=== PATIENT | female | born 1980 | race Caucasian/White ===

== ENCOUNTER 2020-04-21 08:19 | Outpatient (REF) | payer OTHER, SELFPAY ==
[2020-04-21 08:48] LABS: MANUAL DIFF FLAG NO
[2020-04-21 08:49] LABS: Basophils Percent Auto 0.4 % (0-2); Eosinophils Absolute Auto 0.1 X10*3/uL (0.0-0.4); Eosinophils Percent Auto 0.8 % (0-4); Hematocrit 38.7 % (37-47); Hemoglobin 11.7 g/dl (12.0-16.0); Imm Gran Abs Auto 0.06 X10*3/uL (0.00-0.03); Imm Gran Pct Auto 0.6 % (0.0-0.4); Lymphocytes Percent Auto 28.3 % (20-40); Mean Corpuscular HGB Conc 30.2 g/dl (31.0-35.0); Mean Corpuscular Hemoglobin 23.4 pg (27.0-33.0); Mean Corpuscular Volume 77.2 fL (80-98); Mean Platelet Volume 9.9 fL (9.4-12.3); Monocytes Absolute Auto 0.6 X10*3/uL (0.1-1.2); Monocytes Percent Auto 5.1 % (2-11); Neutrophils Percent Auto 64.8 % (45-73); Platelet Count 425 X10*3/uL (160-400); Red Blood Count 5.01 X10*6/uL (4.20-5.50); Red Cell Distribution Width 15.6 % (11.0-16.0); White Blood Count 10.7 X10*3/uL (4.8-10.8)
[2020-04-21 09:56] LABS: Alanine Aminotransferase 22 U/L (0-31); Alkaline Phosphatase 83 U/L (39-117); Anion Gap 10 (12-20); Aspartate Amino Transferase 15 U/L (5-31); Bilirubin Total 0.8 mg/dL (0.0-1.0); Blood Urea Nitrogen 11 mg/dL (9-16); C Reactive Protein 1.52 mg/dL (< or = 0.50); Calcium 8.7 mg/dL (8.4-10.2); Carbon Dioxide 28 mmol/L (22-29); Chloride 102 mmol/L (96-108); Cholesterol 187 mg/dL; Estimated Glomerular Filt Rate > 60; Gamma Glutamyl Transpeptidase 16 U/L (7-33); Glucose Random 126 mg/dL (60-115); HDL Cholesterol 34 mg/dL; LDL Cholesterol Calculated 131 mg/dl; Potassium 4.1 mmol/l (3.3-5.1); Sodium 136 mmol/L (135-145); Triglycerides 112 mg/dL
[2020-04-21 11:19] LABS: Reflex LDLD? No
== END 2020-04-21 08:20 | disposition home or self-care (01) ==
LOC: HO.LAB 08:19
PROVIDERS: PCP Internal Medicine; Visit Provider Internal Medicine Gastroenterology
DX: K76.0 Fatty (change of) liver, not elsewhere classified (principal)
CPT/HCPCS: 36415; 80053; 80061; 82977; 85025; 86140

== ENCOUNTER 2020-05-01 13:12 | Outpatient (REF) | payer OTHER, SELFPAY ==
[2020-05-01 13:32] LABS: COVID-19 Test Negative (Negative); IDNOW Serial# 55D5AD1C
== END 2020-05-01 13:13 | disposition home or self-care (01) ==
LOC: HO.EMPCOV 13:12
PROVIDERS: Visit Provider Internal Medicine
DX: Z20.828 Contact with and (suspected) exposure to other viral communicable diseases (principal)
CPT/HCPCS: 87635; C9803

== ENCOUNTER → 2020-05-02 08:17 | Outpatient (BNVA) | payer OTHER, SELFPAY | PROVIDERS: PCP Internal Medicine; Referring Provider Internal Medicine; Visit Provider Internal Medicine Gastroenterology | DX: Z76.89 Persons encountering health services in other specified circumstances (principal) ==

== ENCOUNTER → 2021-11-01 12:01 | Outpatient (BNVA) | payer OTHER, SELFPAY | PROVIDERS: Visit Provider Nurse Practitioner | DX: K76.0 Fatty (change of) liver, not elsewhere classified (principal); K59.04 Chronic idiopathic constipation | CPT/HCPCS: 99212 ==

== ENCOUNTER 2021-12-12 11:22 | Outpatient (REF) | payer OTHER, SELFPAY ==
--- NOTE | ~2021-12-12 | US_ITS ---
EXAMINATION: US COMPLETE ABDOMEN WITH LIVER ELASTOGRAPHY CLINICAL INFORMATION: Fatty liver. COMPARISON: Abdominal ultrasound dated 06/16/2017. TECHNIQUE: Real-time imaging of the abdominal viscera. Noninvasive ultrasound liver fibrosis assessment is performed using Evie ElastPQ point quantification shear wave elastography (2D-SWE) with a C5-2 MHz transducer. Multiple elastography samples are obtained. FINDINGS: PANCREAS: Normal. The visualized pancreatic head and body are normal in appearance. The remainder of the pancreas is obscured from visualization by the overlying bowel gas. ABDOMINAL AORTA: The proximal, middle, and distal aortic segments are normal in caliber. INFERIOR VENA CAVA: Visualized portions are normal. LIVER: The liver demonstrates normal size, contour and generally increased echogenicity. No focal lesion or intrahepatic biliary duct dilatation. The right lobe measures 17.6 cm in length. The left lobe measures 12.4 cm in length. Portal flow is towards the liver (hepatopetal). Shear wave liver elastography median stiffness is 1.46 m/s (reference: normal median stiffness is 1.3 m/s or less). IQR/median stiffness to assess sampling precision is 0.08 (reference: good quality data set is IQR/median stiffness of 0.15 or less). GALLBLADDER: There are multiple gallstones, without gallbladder nonmobile polyps, wall thickening or pericholecystic fluid. COMMON BILE DUCT: Normal in caliber measuring 0.3 cm in diameter. RIGHT KIDNEY: Normal. No hydronephrosis. No renal calculi or focal parenchymal lesions. The kidney measures 12.0 cm in maximum dimension. LEFT KIDNEY: Normal. No hydronephrosis. No renal calculi or focal parenchymal lesions. The kidney measures 12.1 cm in maximum dimension. SPLEEN: Normal. The spleen measures 10.5 cm in maximum dimension. FREE FLUID: None. US/US abdomen comp w elastography IMPRESSION: 1. There is generalized increase in hepatic echotexture, consistent with fatty infiltration or hepatocellular disease. Please correlate clinically. No focal hepatic mass or intrahepatic biliary dilatation is seen. 2. Liver elastography: In the absence of other known clinical signs, measurements rule out compensated advanced chronic liver disease. If there are known clinical signs, further testing may be needed for confirmation. REFERENCE: Society of Radiologists in Ultrasound Liver Stiffness Thresholds (2020): LIVER STIFFNESS THRESHOLDS: *Liver Stiffness equal or less than 1.3 m/s: High probability of being normal. *Liver Stiffness less than 1.7 m/s: In the absence of other known clinical signs, rules out compensated advanced chronic liver disease. *Liver Stiffness 1.7-2.1 m/s: Suggestive of compensated advanced chronic liver disease but need further test for confirmation. *Liver Stiffness over 2.1 m/s: Rules in compensated advanced chronic liver disease. *Liver Stiffness over 2.4 m/s: Suggestive of clinically significant portal hypertension. QUALITY OF DATA SET: *IQR/Median value equal or less than 0.15 implies a quality data set. *IQR/Median value over 0.15 implies a poor quality data set. SIGNIFICANT CHANGE FROM PRIOR EXAM: Significant change if liver stiffness measurement is 10% or greater from prior exam. OTHER CONSIDERATIONS: The stage of liver fibrosis may be overestimated in the setting of acute hepatitis, liver inflammation, elevated liver function tests, hepatic vascular congestion, obstructive cholestasis, non-fasting state, and infiltrative diseases such as amyloidosis and lymphoma. In some patients with NAFLD, the liver stiffness thresholds for compensated advanced chronic liver disease may be lower. In causes other than viral hepatitis and NAFLD, liver stiffness thresholds are not well established.
[2021-12-12 12:11] LABS: MANUAL DIFF FLAG NO
[2021-12-12 12:21] LABS: Basophils Percent Auto 0.3 % (0-2); Eosinophils Absolute Auto 0.2 X10*3/uL (0.0-0.4); Eosinophils Percent Auto 1.3 % (0-4); Hematocrit 36.1 % (37.0-47.0); Hemoglobin 10.8 g/dl (12.0-16.0); Imm Gran Abs Auto 0.04 X10*3/uL (0.00-0.03); Imm Gran Pct Auto 0.3 % (0.0-0.4); Lymphocytes Absolute Auto 3.4 X10*3/uL (1.2-4.9); Lymphocytes Percent Auto 29.7 % (20-40); Mean Corpuscular HGB Conc 29.9 g/dl (31.0-35.0); Mean Corpuscular Hemoglobin 22.5 pg (27.0-33.0); Mean Corpuscular Volume 75.2 fL (80.0-98.0); Mean Platelet Volume 9.6 fL (9.4-12.3); Monocytes Absolute Auto 0.6 X10*3/uL (0.1-1.2); Monocytes Percent Auto 4.7 % (2-11); Neutrophils Absolute Auto 7.4 x10*3/uL (2.0-8.3); Neutrophils Percent Auto 63.7 % (45-73); Platelet Count 375 X10*3/uL (160-400); Red Cell Distribution Width 15.8 % (11.0-16.0); White Blood Count 11.6 X10*3/uL (4.8-10.8)
[2021-12-12 13:15] LABS: Alanine Aminotransferase 20 U/L (0-31); Alkaline Phosphatase 72 U/L (39-117); Anion Gap 12 (12-20); Aspartate Amino Transferase 16 U/L (5-31); Bilirubin Total 0.5 mg/dL (0.0-1.0); Blood Urea Nitrogen 12 mg/dL (9-16); Carbon Dioxide 25 mmol/L (22-29); Chloride 106 mmol/L (96-108); Estimated Glomerular Filt Rate > 60; Glucose Random 96 mg/dL (60-115); Potassium 4.6 mmol/L (3.3-5.1); Sodium 138 mmol/L (135-145)
== END 2021-12-12 11:23 | disposition home or self-care (01) ==
LOC: HO.US 11:22
PROVIDERS: Visit Provider Nurse Practitioner
DX: K76.0 Fatty (change of) liver, not elsewhere classified (principal)
CPT/HCPCS: 36415; 76705; 76981; 80053; 82105; 85025

== ENCOUNTER → 2022-02-12 11:58 | Outpatient (BNVA) | payer OTHER, SELFPAY | PROVIDERS: Visit Provider Nurse Practitioner | DX: K76.0 Fatty (change of) liver, not elsewhere classified (principal); K59.04 Chronic idiopathic constipation; K80.20 Calculus of gallbladder without cholecystitis without obstruction; D64.9 Anemia, unspecified; D72.829 Elevated white blood cell count, unspecified | CPT/HCPCS: 99212 ==

== ENCOUNTER → 2022-08-13 12:06 | Outpatient (BNVA) | payer OTHER, SELFPAY | PROVIDERS: Visit Provider Nurse Practitioner | DX: K59.04 Chronic idiopathic constipation (principal); K76.0 Fatty (change of) liver, not elsewhere classified; K21.9 Gastro-esophageal reflux disease without esophagitis; K80.20 Calculus of gallbladder without cholecystitis without obstruction | CPT/HCPCS: 99212 ==

== ENCOUNTER 2022-08-29 08:53 | Outpatient (REF) | payer OTHER, SELFPAY ==
--- NOTE | ~2022-08-29 | US_ITS ---
EXAMINATION: US ABDOMEN LIMITED CLINICAL INFORMATION: Fatty liver. COMPARISON: Ultrasound abdomen complete 12/12/2021 and 06/16/2017. TECHNIQUE: Real-time imaging of the right upper quadrant abdominal viscera. FINDINGS: PANCREAS: Normal. LIVER: Liver echotexture is increased. The liver is slightly enlarged. The liver contour is normal. No focal hepatic lesion. There is no intrahepatic biliary duct dilatation seen. GALLBLADDER: The gallbladder is physiologically distended. Multiple mobile gallstones are present. No evidence of gallbladder wall thickening or pericholecystic fluid. COMMON BILE DUCT: Normal in caliber measuring 0.4 cm in diameter. RIGHT KIDNEY: Normal. No hydronephrosis. No renal calculi or focal parenchymal lesions. The kidney measures 11.5 cm in maximum dimension. FREE FLUID: None. US/US abdomen limited IMPRESSION: Slightly enlarged echogenic liver probably representing fatty infiltration. Gallstones.
[2022-08-29 10:25] LABS: Alanine Aminotransferase 28 U/L (0-31); Alkaline Phosphatase 80 U/L (39-117); Anion Gap 11 (12-20); Aspartate Amino Transferase 23 U/L (5-31); Bilirubin Total 0.9 mg/dL (0.0-1.0); Blood Urea Nitrogen 11 mg/dL (9-16); Calcium 9.2 mg/dL (8.4-10.2); Carbon Dioxide 27 mmol/L (22-29); Chloride 106 mmol/L (96-108); Estimated Glomerular Filt Rate > 60; Glucose Random 121 mg/dL (60-115); Potassium 4.5 mmol/L (3.3-5.1); Sodium 139 mmol/L (135-145)
[2022-08-29 10:41] LABS: TSH reflex Free T4 0.55 uIU/mL (0.32-4.0)
[2022-09-01 14:03] LABS: Alpha Fetoprotein 1.3 ng/mL
== END 2022-08-29 08:54 | disposition home or self-care (01) ==
LOC: HO.US 08:53
PROVIDERS: Visit Provider Nurse Practitioner
DX: K59.04 Chronic idiopathic constipation (principal); K76.0 Fatty (change of) liver, not elsewhere classified
CPT/HCPCS: 36415; 76705; 80053; 82105; 84443

== ENCOUNTER → 2022-09-24 10:54 | Outpatient (BNVA) | payer OTHER, SELFPAY | PROVIDERS: Visit Provider Nurse Practitioner | DX: K59.04 Chronic idiopathic constipation (principal); K80.20 Calculus of gallbladder without cholecystitis without obstruction; K76.0 Fatty (change of) liver, not elsewhere classified; K21.9 Gastro-esophageal reflux disease without esophagitis; R11.10 Vomiting, unspecified | CPT/HCPCS: 99212 ==

== ENCOUNTER 2023-04-30 11:51 | Outpatient (AMB) | payer OTHER, SELFPAY ==
--- NOTE | 2023-04-30 11:54 | A.OFFVIS_ITS ---
Intake Vital Signs 3 04/30/23 12:03 Height 5 ft 2 in Weight 192 lb BMI 35.1 BP 127/74 Blood Pressure Location Rt brachial Position Sitting Pulse 73 Intake Visit Reasons: 6 mnth follow up Intake Note: Laurence presents in office visit today in 6 months follow up of constipation. CC: Patient reports she already had prolapse surgery done on 02/05/23. She c/o constipation, blood from internal hemorrhoids, lower abdominal pain. Pt also c/o abdominal bloating and cramps. Sand Cutter Required: No Accompanied by: Self / Same As Patient Allergies oxycodone [OXYCODONE] Allergy (Unknown, Verified 04/30/23 11:59) NAUSEA & VOMITING, nausea HPI 6 mnth follow up 2 HPI0 Details Assessment & Plan (1) Vomiting: Code(s): R11.10 - Vomiting, unspecified Plan: [place] #.declines .. She is still having trouble with CIC, but taking 2 senna qhs gave her diarrhea and made her dizzy, She has not tried 1 senna and I suggest qod etc to her titration. Only slightly better for unknown reasons , still has unexpected projective vomiting about 6 times a week, w.o much warning. Sometimes will get hot and then vomit but not all the time. NO abd pain. Some days no vomiting sometimes many times a day. Will carefully increase reglan to 1 tab qacam, 1 qnoon and 2 qac supper and qhs. Need to monitor for SS. On cymbalta and Topamax 100mg for migraines. She continues on her imipramine at bedtime, pantoprazole, and has senna and simethicone for constipation and bloating. We review her ultrasound at her liver functions it appears that her fatty liver is stable. I did educational guidance counselor her that it is possible she is having trouble with gallstones and for now she should avoid all fatty foods and we do review alarm signs and symptoms that would necessitate an emergency cholecystectomy. In the past she has been asymptomatic from these. She saw her B[employer] MANAGER and she does indeed have uterine prolapse that is effecting her stooling. She will be seeing urology to consider hyst vs sling surgery etc. She also have urinary frequency. ROV 6 mos. (2) Gallstones: Code(s): K80.20 - Calculus of gallbladder without cholecystitis without obstruction (3) Chronic idiopathic constipation: Code(s): K59.04 - Chronic idiopathic constipation (4) Hepatic steatosis: Comment: Baseline Laboratory Tests 12/12/21 WBC 11.6 H Hgb 10.8 L Hct 36.1 L MCV 75.2 L MCH 22.5 L Estimated GFR > 60 Direct Bilirubin 0.2 Total Bilirubin 0.5 AST 16 ALT 20 Alkaline Phosphatase 72 Alpha Fetoprotein 2.0 ULTRASOUND OF THE ABDOMEN WITH ELASTOGRAPHY 12/17/21? (F0-F1) CURRENT LABORATORY RESULTS 08/29/22 Estimated GFR > 60 Total Bilirubin 0.9 AST 23 ALT 28 Alkaline Phosphatase 80 Alpha Fetoprotein 1.3 TSH 0.55 ULTRASOUND THE ABDOMEN 09/02/22. IMPRESSION: Slightly enlarged echogenic liver probably representing fatty infiltration. Gallstones. Code(s): K76.0 - Fatty (change of) liver, not elsewhere classified (5) GERD (gastroesophageal reflux diseas e): Code(s): K21.9 - Gastro-esophageal reflux disease without esophagitis Medications: Changed From docusate sodium PO To docusate sodium 100 mg PO DAILY 3 0 caps 6RF Refilled sennosides (senna) 17.2 mg (2 x 8.6 m g) PO BEDTIME 30 d ays 60 caps 6RF co nstipation K59.04 - Chronic i diopathic constipa tion Today's VISIT [place] # declines medical secretary She her bladder prolapse surgery February 05. It all went well, but since then she has been having rectal pain and bleeding. She has been using 2 senna and 2 Colace to cause diarrhea because this was less painful to pass, however having diarrhea all the time is not convenient and not nutritionally helpful, so she stop the senna and was just taking Colace. With this her stools were on the softer side but still it would hurt when she had the past her bowels. She presented to her OBGYN surgeon who did an internal in said she had hemorrhoids and told her to use [id number] Preparation-H. However, they did not educate her that you really need to use it for a long period like 2 weeks straight to overcome this she ring forces that continually irritate the hemorrhoids and to promote healing. She is having some blood in her stools as well. She is quite concerned that she has some sort of infection. The differential diagnosis is wide and of course could include internal problem from surgery, a stool infection or even a Lawanda infection from operative antibiotics. For now however I think I am going to have her use her Preparation-H suppositories at least twice a day or even 3 times a day for 2 weeks straight and will see if this helps alleviate the pain. If it does not then will consider if the stool studies show us any new information and if not we may even take a swab sample of the rectum to see what might be going on. All also treat her with a course of Flagyl just in case there is some sort of low level infection. She is also having some tenesmus and bowel irritability which I would expect after having prolapse surgery since the course of the bowels somewhat altered. She also had an episode res she had an E coli urine tract infection that seem to have resolved on its own. The she is agreeable to going for lab work for monitoring of her fatty liver. Will also get an ultrasound. She continues on her reglan to 1 tab qacam, 1 qnoon and 2 qac supper and qhs. To date there has been no adverse effects or drug interactions. Need to monitor for SS. On cymbalta and Topamax 100mg for migraines. She continues on her imipramine at bedtime, pantoprazole, and has senna and simethicone for constipation and bloating. Return office visit in 2 weeks [facility] Medical History Hx of iron deficiency anemia Chronic idiopathic constipation Hepatic steatosis Surgical History S/P tubal ligation S/P tonsillectomy S/P Social History Household Members: Spouse and Children Alcohol intake: never service: No Current occupational status: employed Current occupation: [employer] Review of Systems Const Denies fatigue, Denies fever(s), Denies night sweats, Denies poor appetite and Denies weight loss ENT Reports Normal hearing present, Denies dysphagia, Denies odynophagia, Denies throat swelling and Denies tongue swelling Card Reports no additional complaints Resp Reports no additional complaints GI Details: rectal pain Denies abdominal pain, Denies melena, Denies bloating, Reports hematochezia, Reports constipation, Denies GI cramping, Denies dysphagia, Denies excessive flatus, Denies early satiety, Reports heartburn, Reports diarrhea, Denies nausea, Denies odynophagia, Denies vomiting and Denies hematemesis Reports difficulty voiding Skin/Breast Denies pruritus, Denies lesions, Denies rash and Denies jaundice Neuro Reports Normal hearing present and Denies Abnormal speech present Endo Denies fatigue Aller/Immun Denies throat swelling and Denies tongue swelling Physical Exam Vital Signs: Last Vital Signs Pulse 73 04/30/23 12:03 BP 127/74 04/30/23 12:03 BMI result Body Mass Index 35.1 Const General: cooperative, no acute distress, well developed and well groomed Nutritional Appearance: well nourished and obese morbidly obese Orientation/consciousness: oriented to person, oriented to place and oriented to time Limitations: No language barrier HEENT Head: Yes normocephalic and Yes atraumatic Eyes General: appearance normal, both eyes and all related structures Pupils: Equal, round and reactive pupils present Neck Neck: Yes normal visual inspection and Yes no lymphadenopathy Thyroid: Thyroid normal Resp Effort & Inspection: normal respiratory effort and able to speak in complete sentences Auscultation: clear to auscultation bilaterally Cardio Rate: regular rate Rhythm: regular rhythm Heart sounds: Normal, physiologic split S2 sound present Peripheral pulses: radial pulses present and posterior tibial pulses present GI Inspection: No distended, Yes Abdominal panniculus present and Yes obesity Palpation (GI): Soft to palpation, nontender, no guarding, not rigid and No hepatosplenomegaly present Percussion: Yes normal to percussion Auscultation: normal bowel sounds Rectal Exam - Female: normal sphincter tone, Internal hemorrhoid(s) present, No fecal impaction, No Lesions present (GI), No Anal fissure(s) present, tenderness and other (small anal tag at 3 O'clock, generally painful internally in all aspects) Abdomen image: 2 1. well healing surgical lap scars 2. 3. 4. Skin General skin exam: no rashes or lesions noted, turgor normal, skin not dry, no jaundice, No spider nevi and no striae Rashes: no rashes Nails: normal Neuro General: oriented to person, oriented to place and oriented to time Cranial nerves: Yes Equal, round and reactive pupils present and Yes Normal hearing present Speech: No Abnormal speech present Extrem General: Yes normal to inspection, No clubbing, No cyanosis and No edema Psych Appearance: grossly normal and well kempt Mental Status: mental status grossly normal Speech and movement: Normal speech and movement present Affect: normal affect Attitude: cooperative Thought process: Normal thought process present and not confabulating Thought content: Normal thought content present Insight: Limited insight present (Psych) Judgement: Limited judgement present (Psych) Assessment & Plan Assessment & Plan (1) Chronic idiopathic constipation: Code(s): K59.04 - Chronic idiopathic constipation (2) GERD (gastroesophageal reflux disease): Code(s): K21.9 - Gastro-esophageal reflux disease without esophagitis (3) Vomiting: Code(s): R11.10 - Vomiting, unspecified (4) Hepatic steatosis: Comment: Baseline Laboratory Tests 12/12/21 WBC 11.6 H Hgb 10.8 L Hct 36.1 L MCV 75.2 L MCH 22.5 L Estimated GFR > 60 Direct Bilirubin 0.2 Total Bilirubin 0.5 AST 16 ALT 20 Alkaline Phosphatase 72 Alpha Fetoprotein 2.0 ULTRASOUND OF THE ABDOMEN WITH ELASTOGRAPHY 12/17/21? (F0-F1) CURRENT LABORATORY RESULTS 08/29/22 Estimated GFR > 60 Total Bilirubin 0.9 AST 23 ALT 28 Alkaline Phosphatase 80 Alpha Fetoprotein 1.3 TSH 0.55 ULTRASOUND THE ABDOMEN 09/02/22. IMPRESSION: Slightly enlarged echogenic liver probably representing fatty infiltration. Gallstones. Code(s): K76.0 - Fatty (change of) liver, not elsewhere classified (5) Gallstones: Code(s): K80.20 - Calculus of gallbladder without cholecystitis without obstruction (6) Diarrhea: Code(s): R19.7 - Diarrhea, unspecified (7) Rectal pain: Code(s): K62.89 - Other specified diseases of anus and rectum Plan [place] # declines medical secretary She her bladder prolapse surgery February 05. It all went well, but since then she has been having rectal pain and bleeding. She has been using 2 senna and 2 Colace to cause diarrhea because this was less painful to pass, however having diarrhea all the time is not convenient and not nutritionally helpful, so she stop the senna and was just taking Colace. With this her stools were on the softer side but still it would hurt when she had the past her bowels. She presented to her OBGYN surgeon who did an internal in said she had hemorrhoids and told her to use [id number] Preparation-H. However, they did not educate her that you really need to use it for a long period like 2 weeks straight to overcome this she ring forces that continually irritate the hemorrhoids and to promote healing. She is having some blood in her stools as well. She is quite concerned that she has some sort of infection. The differential diagnosis is wide and of course could include internal problem from surgery, a stool infection or even a Lawanda infection from operative antibiotics. For now however I think I am going to have her use her Preparation-H suppositories at least twice a day or even 3 times a day for 2 weeks straight and will see if this helps alleviate the pain. If it does not then will consider if the stool studies show us any new information and if not we may even take a swab sample of the rectum to see what might be going on. All also treat her with a course of Flagyl just in case there is some sort of low level infection. She is also having some tenesmus and bowel irritability which I would expect after having prolapse surgery since the course of the bowels somewhat altered. She also had an episode res she had an E coli urine tract infection that seem to have resolved on its own. The she is agreeable to going for lab work for monitoring of her fatty liver. Will also get an ultrasound. She continues on her reglan to 1 tab qacam, 1 qnoon and 2 qac supper and qhs. To date there has been no adverse effects or drug interactions. Need to monitor for SS. On cymbalta and Topamax 100mg for migraines. She continues on her imipramine at bedtime, pantoprazole, and has senna and simethicone for constipation and bloating. Return office visit in 2 weeks Orders: Orders 2 Alpha Fetoprotein Today K76.0 - Fatty (change of) liver, not elsewhere classified US abdomen comp w elastography Today K76.0 - Fatty (change of) liver, not elsewhere classified GI Panel Today K62.89 - Other specified diseases of anus and rectum, K64.9 - Unspecified hemorrhoids, R19.7 - Diarrhea, unspecified Ova and Parasite Today K62.89 - Other specified diseases of anus and rectum, K64.9 - Unspecified hemorrhoids, R19.7 - Diarrhea, unspecified Liver Panel Today K76.0 - Fatty (change of) liver, not elsewhere classified Medications: New 2 metronidazole 500 mg PO TID 10 days 30 tabs 0RF Refilled 2 sennosides (senna) 17.2 mg (2 x 8.6 mg) PO BEDTIME 30 days 60 caps 6RF constipation K59.04 - Chronic idiopathic constipation famotidine (Pepcid) 40 mg PO BEDTIME 30 tabs 6RF K21.9 - Gastro-esophageal reflux disease without esophagitis docusate sodium 100 mg PO DAILY 30 caps 6RF Coding Level of Care Code Est Pt Level 4 (95538) Diagnoses Chronic idiopathic constipation K59.04 GERD (gastroesophageal reflux disease) K21.9 Vomiting R11.10 Hepatic steatosis K76.0 Gallstones K80.20 Diarrhea R19.7 Rectal pain K62.89
[2023-04-30 12:03] VITALS: BP 127/74; PULSE 73; BMI 35.1
== END 2023-04-30 12:53 | disposition home or self-care (01) ==
PROVIDERS: Visit Provider Nurse Practitioner
DX: K59.04 Chronic idiopathic constipation (principal); K21.9 Gastro-esophageal reflux disease without esophagitis; R11.10 Vomiting, unspecified; K76.0 Fatty (change of) liver, not elsewhere classified; K80.20 Calculus of gallbladder without cholecystitis without obstruction; R19.7 Diarrhea, unspecified; K62.89 Other specified diseases of anus and rectum
CPT/HCPCS: 99214

== ENCOUNTER → 2023-04-30 11:51 | Outpatient (BNVA) | payer OTHER, SELFPAY | PROVIDERS: Visit Provider Nurse Practitioner | DX: K59.04 Chronic idiopathic constipation (principal); K21.9 Gastro-esophageal reflux disease without esophagitis; K76.0 Fatty (change of) liver, not elsewhere classified; K80.20 Calculus of gallbladder without cholecystitis without obstruction; K62.89 Other specified diseases of anus and rectum; R11.10 Vomiting, unspecified; R19.7 Diarrhea, unspecified | CPT/HCPCS: 99212 ==

== ENCOUNTER 2023-05-03 | Outpatient (REF) | payer OTHER, SELFPAY ==
[2023-05-04 14:24] LABS: Adenovirus F 40/41 Not Detected (Not Detect.); Astrovirus Not Detected (Not Detect.); Campylobacter Not Detected (Not Detect.); Cryptosporidium Not Detected (Not Detect.); Cyclospora cayetanensis Not Detected (Not Detect.); E. coli EAEC Not Detected (Not Detect.); E. coli EPEC Not Detected (Not Detect.); E. coli ETEC Not Detected (Not Detect.); E. coli STEC Not Detected (Not Detect.); Entamoeba histolytica Not Detected (Not Detect.); Giardia lamblia Not Detected (Not Detect.); Norovirus GI/GII Not Detected (Not Detect.); Plesiomonas shigelloides Not Detected (Not Detect.); Rotavirus A Not Detected (Not Detect.); Salmonella Not Detected (Not Detect.); Sapovirus Not Detected (Not Detect.); Shigella sp./EIEC Not Detected (Not Detect.); Vibrio Not Detected (Not Detect.); Vibrio Cholerae Not Detected (Not Detect.); Yersinia enterocolitica Not Detected (Not Detect.)
== END 2023-05-03 00:01 | disposition home or self-care (01) ==
LOC: HO.LNP
PROVIDERS: Visit Provider Nurse Practitioner
DX: R19.7 Diarrhea, unspecified (principal); K62.89 Other specified diseases of anus and rectum; K64.9 Unspecified hemorrhoids
CPT/HCPCS: 87177; 87209; 87507

== ENCOUNTER 2023-05-12 12:46 | Outpatient (AMB) | payer OTHER, SELFPAY ==
--- NOTE | 2023-05-12 12:53 | A.OFFVIS_ITS ---
Intake Vital Signs 05/12/23 12:58 Height 5 ft 2 in Weight 187 lb 6.287 oz BMI 34.3 BP 113/72 Blood Pressure Location Lt brachial Position Sitting Pulse 84 Intake Visit Reasons: 2 week follow up Intake Note: Angeli presents in the office as a 2 week follow up. CC: She states that today is just a follow up to go over the stool tests that she had done. Water Inspector Required: No Allergies metronidazole [From Flagyl] Allergy (Mild, Verified 05/12/23 12:58) Rash oxycodone [OXYCODONE] Allergy (Unknown, Verified 05/12/23 12:58) NAUSEA & VOMITING, nausea HPI 2 week follow up HPI Details Assessment & Plan (1) Chronic idiopathic constipation: Code(s): K59.04 - Chronic idiopathic constipation (2) GERD (gastroesophageal reflux diseas e): Code(s): K21.9 - Gastro-esophageal reflux disease without esophagitis (3) Vomiting: Code(s): R11.10 - Vomiting, unspecified (4) Hepatic steatosis: Comment: Baseline Laboratory Tests 12/12/21 WBC 11.6 H Hgb 10.8 L Hct 36.1 L MCV 75.2 L MCH 22.5 L Estimated GFR > 60 Direct Bilirubin 0.2 Total Bilirubin 0.5 AST 16 ALT 20 Alkaline Phosphatase 72 Alpha Fetoprotein 2.0 ULTRASOUND OF THE ABDOMEN WITH ELASTOGRAPHY 12/17/21? (F0-F1) CURRENT LABORATORY RESULTS 08/29/22 Estimated GFR > 60 Total Bilirubin 0.9 AST 23 ALT 28 Alkaline Phosphatase 80 Alpha Fetoprotein 1.3 TSH 0.55 ULTRASOUND THE ABDOMEN 09/02/22. IMPRESSION: Slightly enlarged echogenic liver probably representing fatty infiltration. Gallstones. 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 It all went well, but since then she has been having rectal pain and bleeding. She has been using 2 senna and 2 Colace to cause diarrhea because this was less painful to pass, however having diarrhea all the time is not convenient and not nutritionally helpful, so she stop the senna and was just taking Colace. With this her stools were on the softer side but still it would hurt when she had the past her bowels. She presented to her OBGYN surgeon who did an internal in said she had hemorrhoids and told her to use [id number] Preparation-H. However, they did not educate her that you really need to use it for a long period like 2 weeks straight to overcome this she ring forces that continually irritate the hemorrhoids and to promote healing. She is having some blood in her stools as well. She is quite concerned that she has some sort of infection. The differential diagnosis is wide and of course could include internal problem from surgery, a stool infection or even a Lawanda infection from operative antibiotics. For now however I think I am going to have her use her Preparation-H suppositories at least twice a day or even 3 times a day for 2 weeks straight and will see if this helps alleviate the pain. If it does not then will consider if the stool studies show us any new information and if not we may even take a swab sample of the rectum to see what might be going on. All also treat her with a course of Flagyl just in case there is some sort of low level infection. She is also having some tenesmus and bowel irritability which I would expect after having prolapse surgery since the course of the bowels somewhat altered. She also had an episode res she had an E coli urine tract infection that seem to have resolved on its own. The she is agreeable to going for lab work for monitoring of her fatty liver. Will also get an ultrasound. She continues on her reglan to 1 tab qacam, 1 qnoon and 2 qac supper and qhs. To date there has been no adverse effects or drug interactions. Need to monitor for SS. On cymbalta and Topamax 100mg for migraines. She continues on her imipramine at bedtime, pantoprazole, and has senna and simethicone for constipation and bloating. Return office visit in 2 weeks Orders: Orders Alpha Fetoprotein Today K76.0 - Fatty (janelle nge of) liver, not elsewhere classif ied US abdomen comp w elastography Today K76.0 - Fatty (janelle nge of) liver, not elsewhere classif ied GI Panel Today K62.89 - Other spe cified diseases of anus and rectum, K64.9 - Unspecifie d hemorrhoids, R19 .7 - Diarrhea, uns pecified Ova and Parasite Today K62.89 - Other spe cified diseases of anus and rectum, K64.9 - Unspecifie d hemorrhoids, R19 .7 - Diarrhea, uns pecified Liver Panel Today K76.0 - Fatty (janelle nge of) liver, not elsewhere classif ied Medications: New metronidazole 500 mg PO TID 10 days 30 tabs 0RF Refilled sennosides (senna) 17.2 mg (2 x 8.6 m g) PO BEDTIME 30 d ays 60 caps 6RF co nstipation K59.04 - Chronic i diopathic constipa tion famotidine (Pepcid ) 40 mg PO BEDTIME 30 tabs 6RF K21.9 - Gastro-eso phageal reflux dis ease without esoph agitis docusate sodium 100 mg PO DAILY 3 0 caps 6RF LABS 05/04/23-[address]: ORDERED: GI Panel Test Result Flag Refere nce Si te Campylobacter No t Detected Not Det ect. P. shigelloides Not Detected Not Detec t. S almonella Not De tected Not Detect. Vib stevan Not Dete cted Not Detect. Vibri o Cholerae Not Detect ed Not Detect. Y. ente rocolit. Not Detected Not Detect. E. coli E AEC Not Detected N ot Detect. E. coli EPE C Not Detected Not Detect. E. coli ETEC Not Detected Not D etect. E. coli STEC No t Detected Not Det ect. E. coli O157 Not a pplicable Not Detec t. E. coli contai abrahan the O157 anti gen are a subset o f Shiga-lik e toxin-producing E. coli (STEC). Shigella/EIEC Not D etected Not Detect . Cr yptosporidium Not Det ected Not Detect. Cycl ospora Not Detec sean Not Detect. E. his tolytica Not Detecte d Not Detect. Giardia lamblia Not Detected Not Detect. Adenovirus Not Detected No t Detect. Astrovirus Not Detected Not Detect. Norovirus N ot Detected Not De tect. Rotavirus A Not Detected Not Dete ct. Sapovirus Not D etected Not Detect . All results mus t be correlated wi th clinical findin gs. US OF ABD WITH ELASTOGRAPHY 09/02/22 FINDINGS: PANCREAS: Normal. LIVER: Liver echotexture is increased. The liver is slightly enlarged. The liver contour is normal. No focal hepatic lesion. There is no intrahepatic biliary duct dilatation seen. GALLBLADDER: The gallbladder is physiologically distended. Multiple mobile gallstones are present. No evidence of gallbladder wall thickening or pericholecystic fluid. COMMON BILE DUCT: Normal in caliber measuring 0.4 cm in diameter. RIGHT KIDNEY: Normal. No hydronephrosis. No renal calculi or focal parenchymal lesions. The kidney measures 11.5 cm in maximum dimension. FREE FLUID: None. US/US abdomen limited IMPRESSION: Slightly enlarged echogenic liver probably representing fatty infiltration. Gallstones. TODAYS VISIT She will do the labs for the liver today. She did not realize they were ordered. She has another US soon, probably the one with elastography. GS are known and asx. She continues to have symptoms of pain and bleeding with every bowel movement. This is despite using hemorrhoid suppositories [id number] and keeping the stool soft. She feels like something is ?opening and bleeding? with every bowel movement but it is not on the rectal verge and I can see on standard rectal exam. Because of this I think were going to have to get a flexible sigmoidoscopy for further investigation. Again, these problems started after she had bladder sling surgery so were un certain how this relates to the current set of symptoms. I will see her after the flexible sigmoidoscopy for further treatment. I have asked my schedulers to advise me what kind of prep we usually use for this procedure. She says she has a skin disorder and wants to know if this can effect her rectal area. She does not know the name, so this is difficult to answer as I don't have any such dx in her chart or in the old [facility] chart. After a search it is lichen slcerosis vulvar fissure. This is a possibility and would need to be treated with steroids if discovered on flex sig. [facility] Medical History (Updated 05/12/23 @ 14:06 by EULALIO Morales) Vulvar fissure Asthma Gallstones Hx of iron deficiency anemia Chronic idiopathic constipation Hepatic steatosis Surgical History (Updated 05/12/23 @ 14:00 by EULALIO Morales) H/O sinus surgery S/P tubal ligation S/P tonsillectomy S/P Social History Household Members: Spouse and Children Alcohol intake: never service: No Current occupational status: employed Current occupation: [employer] Review of Systems Const Denies fatigue, Denies fever(s), Denies night sweats, Denies poor appetite and Denies weight loss Eyes Details: glasses Reports requires corrective lenses ENT Reports Normal hearing present, Denies dental pain, Denies dysphagia, Denies hearing loss, Denies mouth pain, Denies odynophagia, Denies throat swelling, Denies tongue swelling and Reports other (Dentition adequate) Card Reports no additional complaints Resp Reports no additional complaints GI Denies abdominal pain, Denies melena, Reports bloating, Reports hematochezia, Reports constipation, Denies GI cramping, Denies dysphagia, Denies excessive flatus, Denies early satiety, Reports heartburn, Denies diarrhea, Denies nausea, Denies odynophagia, Denies vomiting, Denies hematemesis and Reports other (RECTAL PAIN) Skin/Breast Denies pruritus, Denies lesions, Denies rash and Denies jaundice Neuro Reports Normal hearing present and Denies Abnormal speech present Endo Denies fatigue Aller/Immun Denies throat swelling and Denies tongue swelling Physical Exam Vital Signs: Last Vital Signs Pulse 84 05/12/23 12:58 BP 113/72 05/12/23 12:58 BMI result Body Mass Index 34.3 Const General: cooperative, no acute distress, well developed and well groomed Nutritional Appearance: well nourished and obese Orientation/consciousness: oriented to person, oriented to place and oriented to time Limitations: language barrier HEENT Head: Yes normocephalic and Yes atraumatic Eyes General: appearance normal, both eyes and all related structures Pupils: Equal, round and reactive pupils present Neck Neck: Yes normal visual inspection and Yes no lymphadenopathy Thyroid: Thyroid normal Resp Effort & Inspection: normal respiratory effort and able to speak in complete sentences Auscultation: clear to auscultation bilaterally Cardio Rate: regular rate Rhythm: regular rhythm Heart sounds: Normal, physiologic split S2 sound present Peripheral pulses: radial pulses present and posterior tibial pulses present GI Inspection: No distended, No Abdominal panniculus present and Yes obesity Palpation (GI): Soft to palpation, nontender, no guarding, not rigid and No hepatosplenomegaly present Percussion: Yes normal to percussion Auscultation: normal bowel sounds Rectal Exam - Female: deferred Skin General skin exam: no rashes or lesions noted, turgor normal, skin not dry, no jaundice, No spider nevi and no striae Rashes: no rashes Nails: normal Neuro General: oriented to person, oriented to place and oriented to time Cranial nerves: Yes Equal, round and reactive pupils present and Yes Normal hearing present Speech: No Abnormal speech present Extrem General: Yes normal to inspection, No clubbing, No cyanosis and No edema Psych Appearance: grossly normal and well kempt Mental Status: mental status grossly normal Speech and movement: Normal speech and movement present Affect: normal affect Attitude: cooperative Thought process: Normal thought process present and not confabulating Thought content: Normal thought content present Insight: Limited insight present (Psych) Judgement: Limited judgement present (Psych) Results Reviewed Results Reviewed: 05/04/23-[address] [facility] [address]: ORDERED: GI Panel Test Result Flag Reference Site Campylobacter Not Detected Not Detect. P. shigelloides Not Detected Not Detect. Salmonella Not Detected Not Detect. Vibrio Not Detected Not Detect. Vibrio Cholerae Not Detected Not Detect. Y. enterocolit. Not Detected Not Detect. E. coli EAEC Not Detected Not Detect. E. coli EPEC Not Detected Not Detect. E. coli ETEC Not Detected Not Detect. E. coli STEC Not Detected Not Detect. E. coli O157 Not applicable Not Detect. E. coli containing the O157 antigen are a subset of Shiga-like toxin-producing E. coli (STEC). Shigella/EIEC Not Detected Not Detect. Cryptosporidium Not Detected Not Detect. Cyclospora Not Detected Not Detect. E. histolytica Not Detected Not Detect. Giardia lamblia Not Detected Not Detect. Adenovirus Not Detected Not Detect. Astrovirus Not Detected Not Detect. Norovirus Not Detected Not Detect. Rotavirus A Not Detected Not Detect. Sapovirus Not Detected Not Detect. All results must be correlated with clinical findings. [facility] 09[facility]22 FINDINGS: PANCREAS: Normal. LIVER: Liver echotexture is increased. The liver is slightly enlarged. The liver contour is normal. No focal hepatic lesion. There is no intrahepatic biliary duct dilatation seen. GALLBLADDER: The gallbladder is physiologically distended. Multiple mobile gallstones are present. No evidence of gallbladder wall thickening or pericholecystic fluid. COMMON BILE DUCT: Normal in caliber measuring 0.4 cm in diameter. RIGHT KIDNEY: Normal. No hydronephrosis. No renal calculi or focal parenchymal lesions. The kidney measures 11.5 cm in maximum dimension. FREE FLUID: None. US/US abdomen limited IMPRESSION: Slightly enlarged echogenic liver probably representing fatty infiltration. Gallstones. Assessment & Plan Assessment & Plan (1) Rectal pain: Comment: ? rectal fissure s/p bladder sling surgery Code(s): K62.89 - Other specified diseases of anus and rectum (2) Lichen sclerosus: Comment: Hx of vulvar involvement ? if manifesting in rectal are as well. Code(s): L90.0 - Lichen sclerosus et atrophicus Plan She will do the labs for the liver today. She did not realize they were ordered. She has another US soon, probably the one with elastography. GS are known and asx. She continues to have symptoms of pain and bleeding with every bowel movement. This is despite using hemorrhoid suppositories [id number]-[id number] and keeping the stool soft. She feels like something is ?opening and bleeding? with every bowel movement but it is not on the rectal verge and I can see on standard rectal exam. Because of this I think were going to have to get a flexible sigmoidoscopy for further investigation. Again, these problems started after she had bladder sling surgery so were uncertain how this relates to the current set of symptoms. I will see her after the flexible sigmoidoscopy for further treatment. I have asked my schedulers to advise me what kind of prep we usually use for this procedure. She says she has a skin disorder and wants to know if this can effect her rectal area. She does not know the name, so this is difficult to answer as I don't have any such dx in her chart or in the old [facility] chart. After a search it is lichen slcerosis vulvar fissure. This is a possibility and would need to be treated with steroids if discovered on flex sig. Orders: Orders Sigmoidoscopy - GI Use Only Today K62.89 - Other specified diseases of anus and rectum Medications: Discontinued amoxicillin-pot clavulanate 875-125 mg Discontinued Reason: Patient Completed Course 1 tab PO BID 10 days 20 tabs 0RF Coding Level of Care Code Est Pt Level 4 (27011) Diagnoses Rectal pain K62.89 Lichen sclerosus L90.0
[2023-05-12 12:58] VITALS: BP 113/72; PULSE 84; BMI 34.3
== END 2023-05-12 14:04 | disposition home or self-care (01) ==
PROVIDERS: Visit Provider Nurse Practitioner
DX: K62.89 Other specified diseases of anus and rectum (principal); L90.0 Lichen sclerosus et atrophicus
CPT/HCPCS: 99214

== ENCOUNTER → 2023-05-12 12:46 | Outpatient (BNVA) | payer OTHER, SELFPAY | PROVIDERS: Visit Provider Nurse Practitioner | DX: K62.89 Other specified diseases of anus and rectum (principal); L90.0 Lichen sclerosus et atrophicus | CPT/HCPCS: 99212 ==

== ENCOUNTER 2023-06-03 09:07 | Outpatient (REF) | payer OTHER, SELFPAY | END 2023-06-03 09:08 | disposition home or self-care (01) | LOC: HO.US 09:07 | PROVIDERS: PCP Internal Medicine; Visit Provider Nurse Practitioner | DX: K76.0 Fatty (change of) liver, not elsewhere classified (principal) | CPT/HCPCS: 36415; 76705; 76981; 80076; 82105 ==

== ENCOUNTER 2023-06-25 11:45 | Day surgery (SDC) | payer OTHER, SELFPAY ==
--- NOTE | 2023-06-24 12:02 | HO.ANESPROP2 ---
Documented by User: Vangie Alva NP 06/24/23 12:02 HPI - Anesthesia Eval Consult details Narrative: 43yo F for Sigmoidoscopy Flexible PMFSH Active Problems Active Problems: All Active Problems (Updated 05/12/23 @ 14:06 by EULALIO Morales) Chronic low back pain (Acute) JACQUELIN (obstructive sleep apnea) (Acute) Lichen sclerosus (Acute) Facet arthropathy, cervical (Acute) Lumbar facet arthropathy (Acute) Environmental allergies (Acute) Gallstones (Acute) Hemorrhoids (Acute) Rectal pain (Acute) Diarrhea (Acute) Vomiting (Acute) GERD (gastroesophageal reflux disease) (Acute) Leukocytosis (Acute) Anemia (Acute) Chronic idiopathic constipation (Acute) Hepatic steatosis (Acute) Past Medical History Medical History Lichen sclerosus Fatty liver Vulvar fissure Asthma Gallstones Hx of iron deficiency anemia Chronic idiopathic constipation Hepatic steatosis Surgical History Surgical History History of partial hysterectomy H/O sinus surgery S/P tubal ligation S/P tonsillectomy S/P Social History Social History Household Members: Spouse and Children Alcohol intake: never Patient Tobacco Use Status: Never used Tobacco Use of substances other than those prescribed or required for medical reasons: No Are you DNR?: No Advance Directives: No Advance Directives Information Provided: Yes service: No Current occupational status: employed Current occupation: [employer] Allergies Allergy/AdvReac Type Severity Reaction Status Date / Time metronidazole [From Flagyl] Allergy Mild Rash Verified 06/25/23 11:54 oxycodone [OXYCODONE] Allergy Unknown NAUSEA & Verified 06/25/23 11:54 VOMITING, nausea Home Medications Medication Instructions Recorded Confirmed Last Taken Type montelukast 10 mg tablet 10 mg PO QPM 11/01/21 06/25/23 Unknown History Lactobacillus rhamnosus GG 10 1 cap PO DAILY 09/24/22 06/25/23 Unknown History billion cell-inulin 200 mg capsule (Sold) diphenhydramine HCl 25 mg capsule 25 mg PO BEDTIME PRN Insomnia 09/24/22 06/25/23 Unknown History (Benadryl) fluticasone propionate 50 1 spray intranasal QDAY 04/30/23 06/25/23 Unknown History mcg/actuation nasal spray,suspension (Flonase Allergy Relief) ibuprofen 800 mg tablet 800 mg PO TID PRN Pain 04/30/23 06/25/23 Unknown History albuterol sulfate 90 mcg/actuation 2 puff inhalation Q4-6H PRN 06/25/23 06/25/23 Unknown History aerosol inhaler Shortness Of Breath Or Wheezing cholecalciferol (vitamin D3) 50 50 mcg PO DAILY 06/25/23 06/25/23 Unknown History mcg (2,000 unit) capsule Assessment and Plan Assessment Anesthesia Assessment: Chart Reviewed Documented by User: Arnav Wilson MD 06/25/23 12:15 [facility] Past Medical History Medical History Lichen sclerosus Fatty liver Vulvar fissure Asthma Gallstones Hx of iron deficiency anemia Chronic idiopathic constipation Hepatic steatosis Family History Family history of problems with anesthesia: No Surgical History Surgical History History of partial hysterectomy H/O sinus surgery S/P tubal ligation S/P tonsillectomy S/P History of Problems with Anesthesia: No Social History Social History Household Members: Spouse and Children Alcohol intake: never Patient Tobacco Use Status: Never used Tobacco Use of substances other than those prescribed or required for medical reasons: No Are you DNR?: No Advance Directives: No Advance Directives Information Provided: Yes service: No Current occupational status: employed Current occupation: [employer] Meds Allergies Allergy/AdvReac Type Severity Reaction Status Date / Time metronidazole [From Flagyl] Allergy Mild Rash Verified 06/25/23 11:54 oxycodone [OXYCODONE] Allergy Unknown NAUSEA & Verified 06/25/23 11:54 VOMITING, nausea Home Medications Medication Instructions Recorded Confirmed Last Taken Type montelukast 10 mg tablet 10 mg PO QPM 11/01/21 06/25/23 Unknown History Lactobacillus rhamnosus GG 10 1 cap PO DAILY 09/24/22 06/25/23 Unknown History billion cell-inulin 200 mg capsule (Working [facility] [employer]) diphenhydramine HCl 25 mg capsule 25 mg PO BEDTIME PRN Insomnia 09/24/22 06/25/23 Unknown History (Benadryl) fluticasone propionate 50 1 spray intranasal QDAY 04/30/23 06/25/23 Unknown History mcg/actuation nasal spray,suspension (Flonase Allergy Relief) ibuprofen 800 mg tablet 800 mg PO TID PRN Pain 04/30/23 06/25/23 Unknown History albuterol sulfate 90 mcg/actuation 2 puff inhalation Q4-6H PRN 06/25/23 06/25/23 Unknown History aerosol inhaler Shortness Of Breath Or Wheezing cholecalciferol (vitamin D3) 50 50 mcg PO DAILY 06/25/23 06/25/23 Unknown History mcg (2,000 unit) capsule Exam Airway Mallampati Class: III TM Dist: >3cm Neck ROM: Full Loose/Missing/Broken Teeth: No Heart: [id number] Lungs: cta b/l Assessment and Plan Assessment Anesthesia Assessment: Anesthesia Plan Discussed Final Anesthetic Review Family History of Problems with Anesthesia: No History of Problems with Anesthesia: No NPO: Yes ASA Class: III Final Preanesthetic Review: No Changes in Pt Med Stat, Meds/Allgs Chart Reviewed, Consent Obtained/Reviewed and Anes Risks/Benef Reviewed Patient Risk: Intermediate Procedure Risk: Intermediate Assessment/Block/Sedation in SS: Assess/Block/Sedation-SS Anesthetic Plan Anesthetic Plan: MAC: Disposition: Standard PACU
[2023-06-25 11:57] VITALS: BMI 34.8
--- NOTE | 2023-06-25 12:08 | MHC.SHP ---
Pre-Procedural Eval Section A Date of Service: 06/25/23 Section B Chief Complaint: Other specified diseases of anus and rectum Relevant Family History (Specify if Yes): No Relevant Social History: None Present Medications: see Short Stay Collaborative assessment Medical History: Significant History (Lichen sclerosus Fatty liver Vulvar fissure Asthma Gallstones Hx of iron deficiency anemia Chronic idiopathic constipation Hepatic steatosis) History of Previous Operations: Relevant previous surgery/procedure and date(s) (History of partial hysterectomy H/O sinus surgery S/P tubal ligation S/P tonsillectomy S/P ) Allergies: Allergies Allergy/AdvReac Type Severity Reaction Status Date / Time metronidazole [From Flagyl] Allergy Mild Rash Verified 06/25/23 11:54 oxycodone [OXYCODONE] Allergy Unknown NAUSEA & Verified 06/25/23 11:54 VOMITING, nausea Review of Systems Sugical H&P ROS: Negative: Constitution, Cardiovascular, Respiratory, Neurological, Psychiatric, Hem-Onc, Allergic/Immunologic, Gastrointestinal, Genitourinary, Musculoskeletal, Integumentary, Endocrine and Eyes/Ears/Nose/Throat Exam Surgical H&P Exam: Normal: HEENT, Normal: Heart, Normal: Lungs, Normal: Extremities, Normal: Abdomen, Normal: Skin and Normal: Neurological Plan Diagnosis/Plan: Unchanged I have reviewed the history and physical and performed a pertinent physical examination on my patient. No changes have occurred unless specified. Time Spent With Patient Time: Total time managing care of this patient today ____ minutes.
[2023-06-25 12:12] VITALS: BP 133/85; PULSE 68; RESP 15; TEMP 36.2; O2SAT 97
[2023-06-25] MEDS: Lactated Ringers 1,000 ML 100 ML IVCONT (12:18)
[2023-06-25] MEDS: Sodium Phosphate,Mono-Dibasic 133 ML ENEMA PR ×2 (12:18→12:39)
--- NOTE | 2023-06-25 12:30 | PC.NURSE ---
small soft bm with malone liquid results after 10 minutes of instilling fleets x1
--- NOTE | 2023-06-25 12:52 | PC.NURSE ---
moderate amount clear liquid results with few flecks
--- NOTE | 2023-06-25 13:07 | W.PM.OPN ---
Operative Note Operative Note Date of Service: 06/25/23 Narrative: Operative Information Procedure Description: sigmoidoscopy Indication: rectal bleeding Anesthesia: MAC Sigmoidoscopy Instrument: Upper endoscope Colonoscopy Monitoring: Vital signs and clinical assessment, continuous EKG monitoring, Pulse oximetry, Carbon Dioxide monitoring and blood pressure monitoring were done throughout the procedure. Procedure: The patient was placed in the left lateral decubitis position and pre-procedure medications were administered. After a digital rectal examination of the ano-rectum, the video colonoscope was inserted into the rectum and advanced through the colon to the transverse colon. The scope was slowly withdrawn in a retrograde panoramic fashion and the colon mucosa was carefully examined including a retroflexed view of the rectum. Findings and interventions are described below. Procedure Difficulty: easy Findings: Transverse Colon -normal Descending Colon:normal Sigmoid Colon: normal Rectum: Retroflexion with small to medium sized internal hemorrhoids, grade I--bx taken from rectum to exclude subacute proctitis Anorectum - normal Colon preparation: good Impression and Post Procedure Diagnosis: internal hemorrhoids Plan: sitz bath\ although no obvious fissure noted would trial rectiv for 4-6 weeks with stool softener and see if helps--if no improvement then low dose TCA in case of surgery related proctalgia Above findings were reviewed with the patient and relevant handouts were provided if indicated.
[2023-06-25 13:12] VITALS: BP 105/67; PULSE 71; RESP 20; TEMP 36.5; O2SAT 100
[2023-06-25 13:27] VITALS: BP 124/80; PULSE 63; RESP 18; TEMP 36.6; O2SAT 100
== END 2023-06-25 14:12 | disposition home or self-care (01) ==
PROVIDERS: PCP Internal Medicine; Visit Provider Internal Medicine Gastroenterology
PROC: 0DJD8ZZ Inspection of Lower Intestinal Tract, Via Natural or Artificial Opening Endoscopic (ICD-10-PCS; CPT 45330; principal; 2023-06-25 15:30)
DX: K62.89 Other specified diseases of anus and rectum (principal); K62.5 Hemorrhage of anus and rectum; K64.0 First degree hemorrhoids; K59.04 Chronic idiopathic constipation; K76.0 Fatty (change of) liver, not elsewhere classified; K21.9 Gastro-esophageal reflux disease without esophagitis; K80.20 Calculus of gallbladder without cholecystitis without obstruction; L90.0 Lichen sclerosus et atrophicus; J45.909 Unspecified asthma, uncomplicated; Z79.1 Long term (current) use of non-steroidal anti-inflammatories (NSAID); Z79.899 Other long term (current) drug therapy; Z88.5 Allergy status to narcotic agent; Z88.1 Allergy status to other antibiotic agents; Z90.710 Acquired absence of both cervix and uterus
CPT/HCPCS: 45331; 88305; J2704

== ENCOUNTER → 2023-06-25 11:45 | Outpatient (BNV) | payer OTHER, SELFPAY | PROVIDERS: PCP Internal Medicine; Visit Provider Internal Medicine Gastroenterology | DX: K62.5 Hemorrhage of anus and rectum (principal); K64.0 First degree hemorrhoids | CPT/HCPCS: 45331 ==

== ENCOUNTER 2023-07-08 15:47 | Outpatient (AMB) | payer OTHER, SELFPAY ==
[2023-07-08 15:52] VITALS: BP 130/66; PULSE 72; BMI 34.4
--- NOTE | 2023-07-08 15:52 | MHC.OFFVIS ---
Intake Vital Signs 07/08/23 15:52 Height 5 ft 2 in Weight 188 lb 4.396 oz BMI 34.4 BP 130/66 Blood Pressure Location Lt brachial Position Sitting Pulse 72 Intake Visit Reasons: S/p sigmoid Intake Note: Patient presents to in office visit today in follow up s/p colonoscopy. CC: She states she still struggle sometimes to have a BM and rectal burning sensation. She was prescribed a rectal ointment for a rectal tear but she had to D/C d/t headaches. 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 rectal fissure s/p bladder sling surgery Code(s): K62.89 - Other specified diseases of anus and rectum (2) Lichen sclerosus: Comment: Hx of vulvar involvement ? if manifesting in rectal are as well. Code(s): L90.0 - Lichen sclerosus et atrophicus Plan She will do the labs for the liver today. She did not realize they were ordered. She has another US soon, probably the one with elastography. GS are known and asx. She continues to have symptoms of pain and bleeding with every bowel movement. This is despite using hemorrhoid suppositories [id number] and keeping the stool soft. She feels like something is ?opening and bleeding? with every bowel movement but it is not on the rectal verge and I can see on standard rectal exam. Because of this I think were going to have to get a flexible sigmoidoscopy for further investigation. Again, these problems started after she had bladder sling surgery so were uncertain how this relates to the current set of symptoms. I will see her after the flexible sigmoidoscopy for further treatment. I have asked my schedulers to advise me what kind of prep we usually use for this procedure. She says she has a skin disorder and wants to know if this can effect her rectal area. She does not know the name, so this is difficult to answer as I don't have any such dx in her chart or in the old [facility] chart. After a search it is lichen slcerosis vulvar fissure. This is a possibility and would need to be treated with steroids if discovered on flex sig. Orders: Orders Sigmoidoscopy - GI Use Only Today K62.89 - Other spe cified diseases of anus and rectum Medications: Discontinued amoxicillin-pot cl avulanate 875-125 mg Discontinued Reason: Patient Completed Course 1 tab PO BID 10 d ays 20 tabs 0RF LABS: Laboratory Tests 06/03/23 10:17 Direct Bilirubin 0.3 AST 32 H ALT 35 H Alkaline Phosphata se 78 Alpha Fetoprotein 1.8 SIGMOIDOSCOPY 06/25/23 Findings: Transverse Colon -normal Descending Colon:normal Sigmoid Colon: normal Rectum: Retroflexion with small to medium sized internal hemorrhoids, grade I--bx taken from rectum to exclude subacute proctitis Anorectum - normal Colon preparation: good Impression and Post Procedure Diagnosis: internal hemorrhoids Plan: sitz bath\ although no obvious fissure noted would trial rectiv for 4-6 weeks with stool softener and see if helps--if no improvement then low dose TCA in case of surgery related proctalgia Received: 06/25/23 Diagnosis Rectum, biopsy: Rectal mucosa within normal limits TODAY'S VISIT She could not tolerate the rectal nitro r/t GUDINO and dizziness. The rectal pain continues on the left side of the rectum, but is improving. We will continue the senna and the colace and I will give [place] lidocaine cream for now. Nifedipine cream would be another option, but this would need a compounding pharmacy for this and it may be outside of the patient's ability to pay.. She is also going to continue the senna in the Colace for at least 3 months to try to give any potential lesion in the rectum time to heal. I did let her know that we could not see a lesion we are simply assuming there might be 1 within the folds of the rectum causing her discomfort. However, we did not see any severe pathology and the biopsy did show that it does not seem to be lichen sclerosis like she is experiencing in the vulvar areas. We reviewed the labs her liver and her non alcoholic steatosis appears to be stable. She continues on her famotidine with good control of her GERD. Return office visit in 8 weeks to see how she is progressing. [facility] Medical History Lichen sclerosus Fatty liver Vulvar fissure Asthma Gallstones Hx of iron deficiency anemia Chronic idiopathic constipation Hepatic steatosis Surgical History H/O colonoscopy History of partial hysterectomy H/O sinus surgery S/P tubal ligation S/P tonsillectomy S/P Social History Household Members: Spouse and Children Alcohol intake: never Patient Tobacco Use Status: Never used Tobacco service: No Current occupational status: employed Current occupation: [employer] Review of Systems Const Denies fatigue, Denies fever(s), Denies night sweats, Denies poor appetite and Denies weight loss ENT Reports Normal hearing present, Denies dental pain, Denies dysphagia, Denies hearing loss, Denies mouth pain, Denies odynophagia, Denies throat swelling, Denies tongue swelling and Reports other (Dentition adequate) Card Reports no additional complaints Resp Reports no additional complaints GI Details: Rectal pain Denies abdominal pain, Denies melena, Denies bloating, Denies hematochezia, Reports constipation, Denies GI cramping, Denies dysphagia, Denies excessive flatus, Denies early satiety, Reports heartburn, Denies diarrhea, Denies nausea, Denies odynophagia, Denies vomiting and Denies hematemesis Skin/Breast Denies pruritus, Denies lesions, Denies rash and Denies jaundice Neuro Reports Normal hearing present and Denies Abnormal speech present Endo Denies fatigue Aller/Immun Denies throat swelling and Denies tongue swelling Physical Exam Vital Signs: Last Vital Signs Pulse 72 07/08/23 15:52 BP 130/66 07/08/23 15:52 BMI result Body Mass Index 34.4 Const General: cooperative, no acute distress, well developed and well groomed Nutritional Appearance: well nourished and obese Orientation/consciousness: oriented to person, oriented to place and oriented to time Limitations: No language barrier HEENT Head: Yes normocephalic and Yes atraumatic Eyes General: appearance normal, both eyes and all related structures Pupils: Equal, round and reactive pupils present Neck Neck: Yes normal visual inspection and Yes no lymphadenopathy Thyroid: Thyroid normal Resp Effort & Inspection: normal respiratory effort and able to speak in complete sentences Auscultation: clear to auscultation bilaterally Cardio Rate: regular rate Rhythm: regular rhythm Heart sounds: Normal, physiologic split S2 sound present Peripheral pulses: radial pulses present and posterior tibial pulses present GI Inspection: No distended, No Abdominal panniculus present and Yes obesity Palpation (GI): Soft to palpation, nontender, no guarding, not rigid and No hepatosplenomegaly present Percussion: Yes normal to percussion Auscultation: normal bowel sounds Rectal Exam - Female: deferred Skin General skin exam: no rashes or lesions noted, turgor normal, skin not dry, no jaundice, No spider nevi and no striae Rashes: no rashes Nails: normal Neuro General: oriented to person, oriented to place and oriented to time Cranial nerves: Yes Equal, round and reactive pupils present and Yes Normal hearing present Speech: No Abnormal speech present Extrem General: Yes normal to inspection, No clubbing, No cyanosis and No edema Psych Appearance: grossly normal and well kempt Mental Status: mental status grossly normal Speech and movement: Normal speech and movement present Affect: normal affect Attitude: cooperative Thought process: Normal thought process present and not confabulating Thought content: Normal thought content present Insight: Limited insight present (Psych) Judgement: Limited judgement present (Psych) Results Reviewed Results Reviewed: Laboratory Tests 06/03/23 10:17 Direct Bilirubin 0.3 AST 32 H ALT 35 H Alkaline Phosphatase 78 Alpha Fetoprotein 1.8 SIGMOIDOSCOPY 06/25/23 Findings: Transverse Colon -normal Descending Colon:normal Sigmoid Colon: normal Rectum: Retroflexion with small to medium sized internal hemorrhoids, grade I--bx taken from rectum to exclude subacute proctitis Anorectum - normal Colon preparation: good Impression and Post Procedure Diagnosis: internal hemorrhoids Plan: sitz bath\ although no obvious fissure noted would trial rectiv for 4-6 weeks with stool softener and see if helps--if no improvement then low dose TCA in case of surgery related proctalgia Received: 06/25/23 Diagnosis Rectum, biopsy: Rectal mucosa within normal limits Assessment & Plan Assessment & Plan (1) Rectal pain: Comment: ? rectal fissure s/p bladder sling surgery Code(s): K62.89 - Other specified diseases of anus and rectum (2) GERD (gastroesophageal reflux disease): Code(s): K21.9 - Gastro-esophageal reflux disease without esophagitis (3) Chronic idiopathic constipation: Code(s): K59.04 - Chronic idiopathic constipation (4) Hepatic steatosis: Comment: Baseline Laboratory Tests 12/12/21 WBC 11.6 H Hgb 10.8 L Hct 36.1 L MCV 75.2 L MCH 22.5 L Estimated GFR > 60 Direct Bilirubin 0.2 Total Bilirubin 0.5 AST 16 ALT 20 Alkaline Phosphatase 72 Alpha Fetoprotein 2.0 ULTRASOUND OF THE ABDOMEN WITH ELASTOGRAPHY 12/17/21? (F0-F1) US WITH ELASTOGRAPHY 06/04/23 (F 0) CURRENT LABORATORY RESULTS 06/03/23 10:17 Direct Bilirubin 0.3 AST 32 H ALT 35 H Alkaline Phosphatase 78 Alpha Fetoprotein 1.8 US WITH ELASTOGRAPHY 06/04/23 (F 0) FINDINGS: PANCREAS: Normal. The visualized pancreatic head and body are normal in appearance. The remainder of the pancreas is obscured from visualization by the overlying bowel gas. ABDOMINAL AORTA: The proximal, middle, and distal aortic segments are normal in caliber. INFERIOR VENA CAVA: Visualized portions are normal. LIVER: Normal. The liver demonstrates normal size, contour and echogenicity. No focal lesion or intrahepatic biliary duct dilatation. The right lobe measures 20.6 cm in length. The left lobe measures 14.0 cm in length. Portal flow is towards the liver (hepatopetal). Shear wave liver elastography median stiffness is 1.27 m/s (reference: normal median stiffness is 1.3 m/s or less). IQR/median stiffness to assess sampling precision is 0.19 (reference: good quality data set is IQR/median stiffness of 0.15 or less). GALLBLADDER: Normal. The gallbladder is physiologically distended without evidence of stones, sludge, polyps, wall thickening or pericholecystic fluid. COMMON BILE DUCT: Normal in caliber measuring 0.4 cm in diameter. RIGHT KIDNEY: Normal. No hydronephrosis. No renal calculi or focal parenchymal lesions. The kidney measures 11.7 cm in maximum dimension. LEFT KIDNEY: Normal. No hydronephrosis. No renal calculi or focal parenchymal lesions. The kidney measures 10.9 cm in maximum dimension. SPLEEN: Normal. The spleen measures 10.4 cm in maximum dimension. FREE FLUID: None. US/US abdomen comp w elastography IMPRESSION: 1. There is hepatomegaly. 2. There is generalized increase in hepatic echotexture, consistent with fatty infiltration or hepatocellular disease. Please correlate clinically. No focal hepatic mass or intrahepatic biliary dilatation is seen. 3. Liver elastography: Although measurements suggest a high probability of normal liver stiffness, there is statistical variability of the sampling which decreases accuracy. REFERENCE: Society of Radiologists in Ultrasound Liver Stiffness Thresholds (2020): LIVER STIFFNESS THRESHOLDS: *Liver Stiffness equal or less than 1.3 m/s: High probability of being normal. *Liver Stiffness less than 1.7 m/s: In the absence of other known clinical signs, rules out compensated advanced chronic liver disease. *Liver Stiffness 1.7-2.1 m/s: Suggestive of compensated advanced chronic liver disease but need further test for confirmation. *Liver Stiffness over 2.1 m/s: Rules in compensated advanced chronic liver disease. *Liver Stiffness over 2.4 m/s: Suggestive of clinically significant portal hypertension. QUALITY OF DATA SET: *IQR/Median value equal or less than 0.15 implies a quality data set. *IQR/Median value over 0.15 implies a poor quality data set. SIGNIFICANT CHANGE FROM PRIOR EXAM: Significant change if liver stiffness measurement is 10% or greater from prior exam. OTHER CONSIDERATIONS: The stage of liver fibrosis may be overestimated in the setting of acute hepatitis, liver inflammation, elevated liver function tests, hepatic vascular congestion, obstructive cholestasis, non-fasting state, and infiltrative diseases such as amyloidosis and lymphoma. In some patients with NAFLD, the liver stiffness thresholds for compensated advanced chronic liver disease may be lower. In causes other than viral hepatitis and NAFLD, liver stiffness thresholds are not well established. Dictated By: Dean Malik MD Signed By: <Electronically signed by Dean Malik MD in OV> 06/04/23 Code(s): K76.0 - Fatty (change of) liver, not elsewhere classified (5) Lichen sclerosus: Comment: Hx of vulvar involvement ? if manifesting in rectal are as well. Code(s): L90.0 - Lichen sclerosus et atrophicus (6) Gallstones: Code(s): K80.20 - Calculus of gallbladder without cholecystitis without obstruction Plan She could not tolerate the rectal nitro r/t GUDINO and dizziness. The rectal pain continues on the left side of the rectum, but is improving. We will continue the senna and the colace and I will give [place] lidocaine cream for now. Nifedipine cream would be another option, but this would need a compounding pharmacy for this and it may be outside of the patient's ability to pay.. She is also going to continue the senna in the Colace for at least 3 months to try to give any potential lesion in the rectum time to heal. I did let her know that we could not see a lesion we are simply assuming there might be 1 within the folds of the rectum causing her discomfort. However, we did not see any severe pathology and the biopsy did show that it does not seem to be lichen sclerosis like she is experiencing in the vulvar areas. We reviewed the labs her liver and her non alcoholic steatosis appears to be stable. She continues on her famotidine with good control of her GERD. Return office visit in 8 weeks to see how she is progressing. Medications: New lidocaine 5% use [place] bid for rectal pain 1 appl topical BID 30 grams 3RF K62.89 - Other specified diseases of anus and rectum Refilled sennosides (senna) 17.2 mg (2 x 8.6 mg) PO BEDTIME 30 days 60 caps 6RF constipation K59.04 - Chronic idiopathic constipation docusate sodium 100 mg PO DAILY 30 caps 6RF Discontinued nitroglycerin 0.4%(w/w) (Rectiv) Discontinued Reason: Doctor's Order 1 inch [place] BID 30 grams 2RF Coding Level of Care Code Est Pt Level 3 (73388) Diagnoses Rectal pain K62.89 GERD (gastroesophageal reflux disease) K21.9 Chronic idiopathic constipation K59.04 Hepatic steatosis K76.0 Lichen sclerosus L90.0 Gallstones K80.20
== END 2023-07-08 16:48 | disposition home or self-care (01) ==
PROVIDERS: PCP Internal Medicine; Visit Provider Nurse Practitioner
DX: K62.89 Other specified diseases of anus and rectum (principal); K21.9 Gastro-esophageal reflux disease without esophagitis; K59.04 Chronic idiopathic constipation; K76.0 Fatty (change of) liver, not elsewhere classified; L90.0 Lichen sclerosus et atrophicus; K80.20 Calculus of gallbladder without cholecystitis without obstruction
CPT/HCPCS: 99213

== ENCOUNTER → 2023-07-08 15:47 | Outpatient (BNVA) | payer OTHER, SELFPAY | PROVIDERS: PCP Internal Medicine; Visit Provider Nurse Practitioner | DX: K62.89 Other specified diseases of anus and rectum (principal); K21.9 Gastro-esophageal reflux disease without esophagitis; K59.04 Chronic idiopathic constipation; K76.0 Fatty (change of) liver, not elsewhere classified; K80.20 Calculus of gallbladder without cholecystitis without obstruction; L90.0 Lichen sclerosus et atrophicus | CPT/HCPCS: 99212 ==

== ENCOUNTER 2023-09-02 15:45 | Outpatient (AMB) | payer OTHER, SELFPAY ==
--- NOTE | 2023-09-02 15:46 | A.OFFVIS_ITS ---
Vital Signs 09/02/23 15:50 Height 5 ft 2 in Weight 190 lb 14.725 oz BMI 34.9 BP 129/74 Blood Pressure Location Lt brachial Position Sitting Pulse 71 Intake Visit Reasons: 8 week follow up Intake Note: Patient presents to in office visit today in follow up of rectal pain. CC: She states she is doing well and continues having soft stools with medications. Denie any new GI concerns today. 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 rectal fissure s/p bladder sling surgery Code(s): K62.89 - Other specified diseases of anus and rectum (2) GERD (gastroesophageal reflux disease): Code(s): K21.9 - Gastro-esophageal reflux disease without esophagitis (3) Chronic idiopathic constipation: Code(s): K59.04 - Chronic idiopathic constipation (4) Hepatic steatosis: Comment: Baseline Laboratory Tests 12/12/21 WBC 11.6 H Hgb 10.8 L Hct 36.1 L MCV 75.2 L MCH 22.5 L Estimated GFR > 60 Direct Bilirubin 0.2 Total Bilirubin 0.5 AST 16 ALT 20 Alkaline Phosphatase 72 Alpha Fetoprotein 2.0 ULTRASOUND OF THE ABDOMEN WITH ELASTOGRAPHY 12/17/21? (F0-F1) US WITH ELASTOGRAPHY 06/04/23 (F 0) CURRENT LABORATORY RESULTS 06/03/23 10:17 Direct Bilirubin 0.3 AST 32 H ALT 35 H Alkaline Phosphatase 78 Alpha Fetoprotein 1.8 US WITH ELASTOGRAPHY 06/04/23 (F 0) US/US abdomen comp w elastography IMPRESSION: 1. There is hepatomegaly. 2. There is generalized increase in hepatic echotexture, consistent with fatty infiltration or hepatocellular disease. Please correlate clinically. No focal hepatic mass or intrahepatic biliary dilatation is seen. 3. Liver elastography: Although measurements suggest a high probability of normal liver stiffness, there is statistical variability of the sampling which decreases accuracy. Code(s): K76.0 - Fatty (change of) liver, not elsewhere classified (5) Lichen sclerosus: Comment: Hx of vulvar involvement ? if manifesting in rectal are as well. Code(s): L90.0 - Lichen sclerosus et atrophicus (6) Gallstones: Code(s): K80.20 - Calculus of gallbladder without cholecystitis without obstruction Plan She could not tolerate the rectal nitro r/t GUDINO and dizziness. The rectal pain continues on the left side of the rectum, but is improving. We will continue the senna and the colace and I will give VA lidocaine cream for now. Nifedipine cream would be another option, but this would need a compounding pharmacy for this and it may be outside of the patient's ability to pay.. She is also going to continue the senna in the Colace for at least 3 months to try to give any potential lesion in the rectum time to heal. I did let her know that we could not see a lesion we are simply assuming there might be 1 within the folds of the rectum causing her discomfort. However, we did not see any severe pathology and the biopsy did show that it does not seem to be lichen sclerosis like she is experiencing in the vulvar areas. We reviewed the labs her liver and her non alcoholic steatosis appears to be stable. She continues on her famotidine with good control of her GERD. Return office visit in 8 weeks to see how she is progressing. Medications: New lidocaine 5% use VA bid for rectal pain 1 appl topical BID 30 grams 3RF K62.89 - Other specified diseases of anus and rectum Refilled sennosides (senna) 17.2 mg (2 x 8.6 mg) PO BEDTIME 30 days 60 caps 6RF constipation K59.04 - Chronic idiopathic constipation docusate sodium 100 mg PO DAILY 30 caps 6RF Discontinued nitroglycerin 0.4%(w/w) (Rectiv) Discontinued Reason: Doctor's Order 1 inch VA BID 30 grams 2RF TODAY'S VISIT Her rectal pain is resolving and she is worried about when I go off of 2 meds. I reassure her that she can continue both the senna and the colace intermediate w/o any adverse intermediate effects. This only occurs in extreme laxative abuse. She has been dieting and going to the gym and she has lost 10 lbs! We will recheck her liver labs in 3 mos and see how this reflects on her liver function. ROV 3 mos. [facility] Medical History Lichen sclerosus Fatty liver Vulvar fissure Asthma Gallstones Hx of iron deficiency anemia Chronic idiopathic constipation Hepatic steatosis Surgical History H/O colonoscopy History of partial hysterectomy H/O sinus surgery S/P tubal ligation S/P tonsillectomy S/P Social History Household Members: Spouse and Children Alcohol intake: never Patient Tobacco Use Status: Never used Tobacco service: No Current occupational status: employed Current occupation: [employer] Review of Systems Const Denies fatigue, Denies fever(s), Denies night sweats, Denies poor appetite and Denies weight loss ENT Reports Normal hearing present, Denies dental pain, Denies dysphagia, Denies hearing loss, Denies mouth pain, Denies odynophagia, Denies throat swelling, Denies tongue swelling and Reports other (Dentition adequate) Card Reports no additional complaints Resp Reports no additional complaints GI Details: Denies abdominal pain, Denies melena, Denies bloating, Denies hematochezia, Reports constipation, Denies GI cramping, Denies dysphagia, Denies excessive flatus, Denies early satiety, Denies heartburn, Denies diarrhea, Denies nausea, Denies odynophagia, Denies vomiting and Denies hematemesis Skin/Breast Denies pruritus, Denies lesions, Denies rash and Denies jaundice Neuro Reports Normal hearing present and Denies Abnormal speech present Endo Denies fatigue Aller/Immun Denies throat swelling and Denies tongue swelling Physical Exam Vital Signs: Last Vital Signs Pulse 71 09/02/23 15:50 BP 129/74 09/02/23 15:50 BMI result Body Mass Index 34.9 Const General: cooperative, no acute distress, well developed and well groomed Nutritional Appearance: well nourished and obese Orientation/consciousness: oriented to person, oriented to place and oriented to time Limitations: No language barrier HEENT Head: Yes normocephalic and Yes atraumatic Eyes General: appearance normal, both eyes and all related structures Pupils: Equal, round and reactive pupils present Neck Neck: Yes normal visual inspection and Yes no lymphadenopathy Thyroid: Thyroid normal Resp Effort & Inspection: normal respiratory effort and able to speak in complete sentences Auscultation: clear to auscultation bilaterally Cardio Rate: regular rate Rhythm: regular rhythm Heart sounds: Normal, physiologic split S2 sound present Peripheral pulses: radial pulses present and posterior tibial pulses present GI Inspection: No distended, Yes Abdominal panniculus present and Yes obesity Palpation (GI): Soft to palpation, nontender, no guarding, not rigid and No hepatosplenomegaly present Percussion: Yes normal to percussion Auscultation: normal bowel sounds Rectal Exam - Female: deferred Skin General skin exam: no rashes or lesions noted, turgor normal, skin not dry, no jaundice, No spider nevi and no striae Rashes: no rashes Nails: normal Neuro General: oriented to person, oriented to place and oriented to time Cranial nerves: Yes Equal, round and reactive pupils present and Yes Normal hearing present Speech: No Abnormal speech present Extrem General: Yes normal to inspection, No clubbing, No cyanosis and No edema Psych Appearance: grossly normal and well kempt Mental Status: mental status grossly normal Speech and movement: Normal speech and movement present Affect: normal affect Attitude: cooperative Thought process: Normal thought process present and not confabulating Thought content: Normal thought content present Insight: Fair insight present (Psych) Judgement: Fair judgement present (Psych) Assessment & Plan Assessment & Plan (1) GERD (gastroesophageal reflux disease): Code(s): K21.9 - Gastro-esophageal reflux disease without esophagitis Category: Medical (2) Rectal pain: Comment: ? rectal fissure s/p bladder sling surgery Code(s): K62.89 - Other specified diseases of anus and rectum Category: Medical (3) Hepatic steatosis: Comment: Baseline Laboratory Tests 12/12/21 WBC 11.6 H Hgb 10.8 L Hct 36.1 L MCV 75.2 L MCH 22.5 L Estimated GFR > 60 Direct Bilirubin 0.2 Total Bilirubin 0.5 AST 16 ALT 20 Alkaline Phosphatase 72 Alpha Fetoprotein 2.0 ULTRASOUND OF THE ABDOMEN WITH ELASTOGRAPHY 12/17/21? (F0-F1) US WITH ELASTOGRAPHY 06/04/23 (F 0) CURRENT LABORATORY RESULTS 06/03/23 10:17 Direct Bilirubin 0.3 AST 32 H ALT 35 H Alkaline Phosphatase 78 Alpha Fetoprotein 1.8 US WITH ELASTOGRAPHY 06/04/23 (F 0) FINDINGS: PANCREAS: Normal. The visualized pancreatic head and body are normal in appearance. The remainder of the pancreas is obscured from visualization by the overlying bowel gas. ABDOMINAL AORTA: The proximal, middle, and distal aortic segments are normal in caliber. INFERIOR VENA CAVA: Visualized portions are normal. LIVER: Normal. The liver demonstrates normal size, contour and echogenicity. No focal lesion or intrahepatic biliary duct dilatation. The right lobe measures 20.6 cm in length. The left lobe measures 14.0 cm in length. Portal flow is towards the liver (hepatopetal). Shear wave liver elastography median stiffness is 1.27 m/s (reference: normal median stiffness is 1.3 m/s or less). IQR/median stiffness to assess sampling precision is 0.19 (reference: good quality data set is IQR/median stiffness of 0.15 or less). GALLBLADDER: Normal. The gallbladder is physiologically distended without evidence of stones, sludge, polyps, wall thickening or pericholecystic fluid. COMMON BILE DUCT: Normal in caliber measuring 0.4 cm in diameter. RIGHT KIDNEY: Normal. No hydronephrosis. No renal calculi or focal parenchymal lesions. The kidney measures 11.7 cm in maximum dimension. LEFT KIDNEY: Normal. No hydronephrosis. No renal calculi or focal parenchymal lesions. The kidney measures 10.9 cm in maximum dimension. SPLEEN: Normal. The spleen measures 10.4 cm in maximum dimension. FREE FLUID: None. US/US abdomen comp w elastography IMPRESSION: 1. There is hepatomegaly. 2. There is generalized increase in hepatic echotexture, consistent with fatty infiltration or hepatocellular disease. Please correlate clinically. No focal hepatic mass or intrahepatic biliary dilatation is seen. 3. Liver elastography: Although measurements suggest a high probability of normal liver stiffness, there is statistical variability of the sampling which decreases accuracy. Code(s): K76.0 - Fatty (change of) liver, not elsewhere classified Category: Medical (4) Chronic idiopathic constipation: Code(s): K59.04 - Chronic idiopathic constipation Category: Medical (5) Gallstones: Code(s): K80.20 - Calculus of gallbladder without cholecystitis without obstruction Category: Medical Plan Her rectal pain is resolving and she is worried about when I go off of 2 meds. I reassure her that she can continue both the senna and the colace intermediate w/o any adverse terminal block assembler effects. This only occurs in extreme laxative abuse. She has been dieting and going to the gym and she has lost 10 lbs! We will recheck her liver labs in 3 mos and see how this reflects on her liver function. ROV 3 mos. Coding Level of Care Code Est Pt Level 3 (02988) Diagnoses GERD (gastroesophageal reflux disease) K21.9 Rectal pain K62.89 Hepatic steatosis K76.0 Chronic idiopathic constipation K59.04 Gallstones K80.20
[2023-09-02 15:50] VITALS: BP 129/74; PULSE 71; BMI 34.9
== END 2023-09-02 16:12 | disposition home or self-care (01) ==
PROVIDERS: PCP Internal Medicine; Visit Provider Nurse Practitioner
DX: K21.9 Gastro-esophageal reflux disease without esophagitis (principal); K62.89 Other specified diseases of anus and rectum; K76.0 Fatty (change of) liver, not elsewhere classified; K59.04 Chronic idiopathic constipation; K80.20 Calculus of gallbladder without cholecystitis without obstruction
CPT/HCPCS: 99213

== ENCOUNTER → 2023-09-02 15:45 | Outpatient (BNVA) | payer OTHER, SELFPAY | PROVIDERS: PCP Internal Medicine; Visit Provider Nurse Practitioner | DX: K21.9 Gastro-esophageal reflux disease without esophagitis (principal); K62.89 Other specified diseases of anus and rectum; K76.0 Fatty (change of) liver, not elsewhere classified; K59.04 Chronic idiopathic constipation; K80.20 Calculus of gallbladder without cholecystitis without obstruction | CPT/HCPCS: 99212 ==

== ENCOUNTER 2023-12-02 14:47 | Outpatient (AMB) | payer OTHER, SELFPAY ==
--- NOTE | 2023-12-02 14:55 | A.OFFVIS_ITS ---
Vital Signs 12/02/23 14:56 Height 5 ft 2 in Weight 189 lb 9.561 oz BMI 34.7 BP 117/62 Blood Pressure Location Lt brachial Position Sitting Pulse 88 Intake Visit Reasons: 3 month follow up Intake Note: Patient presents to in office visit today in follow up of rectal pain and GERD. CC: She states that she still struggling to have a BM. Patient states that she would like to obtain a referral to Colon and rectal surgery at [facility] to Dr. Henry Bravo. Distribution Estimator Required: No Accompanied by: Self / Same As Patient Allergies metronidazole [From Flagyl] Allergy (Mild, Verified 12/02/23 15:08) Rash oxycodone [OXYCODONE] Allergy (Unknown, Verified 12/02/23 15:08) NAUSEA & VOMITING, nausea HPI HPI 3 month follow up: Details: Assessment & Plan (1) GERD (gastroesophageal reflux disease): Code(s): K21.9 - Gastro-esophageal reflux disease without esophagitis Category: Medical (2) Rectal pain: Comment: ? rectal fissure s/p bladder sling surgery Code(s): K62.89 - Other specified diseases of anus and rectum Category: Medical (3) Hepatic steatosis: Comment: Baseline Laboratory Tests 12/12/21 WBC 11.6 H Hgb 10.8 L Hct 36.1 L MCV 75.2 L MCH 22.5 L Estimated GFR > 60 Direct Bilirubin 0.2 Total Bilirubin 0.5 AST 16 ALT 20 Alkaline Phosphatase 72 Alpha Fetoprotein 2.0 ULTRASOUND OF THE ABDOMEN WITH ELASTOGRAPHY 12/17/21? (F0-F1) US WITH ELASTOGRAPHY 06/04/23 (F 0) CURRENT LABORATORY RESULTS 06/03/23 10:17 Direct Bilirubin 0.3 AST 32 H ALT 35 H Alkaline Phosphatase 78 Alpha Fetoprotein 1.8 US WITH ELASTOGRAPHY 06/04/23 (F 0) FINDINGS: PANCREAS: Normal. The visualized pancreatic head and body are normal in appearance. The remainder of the pancreas is obscured from visualization by the overlying bowel gas. ABDOMINAL AORTA: The proximal, middle, and distal aortic segments are normal in caliber. INFERIOR VENA CAVA: Visualized portions are normal. LIVER: Normal. The liver demonstrates normal size, contour and echogenicity. No focal lesion or intrahepatic biliary duct dilatation. The right lobe measures 20.6 cm in length. The left lobe measures 14.0 cm in length. Portal flow is towards the liver (hepatopetal). Shear wave liver elastography median stiffness is 1.27 m/s (reference: normal median stiffness is 1.3 m/s or less). IQR/median stiffness to assess sampling precision is 0.19 (reference: good quality data set is IQR/median stiffness of 0.15 or less). GALLBLADDER: Normal. The gallbladder is physiologically distended without evidence of stones, sludge, polyps, wall thickening or pericholecystic fluid. COMMON BILE DUCT: Normal in caliber measuring 0.4 cm in diameter. RIGHT KIDNEY: Normal. No hydronephrosis. No renal calculi or focal parenchymal lesions. The kidney measures 11.7 cm in maximum dimension. LEFT KIDNEY: Normal. No hydronephrosis. No renal calculi or focal parenchymal lesions. The kidney measures 10.9 cm in maximum dimension. SPLEEN: Normal. The spleen measures 10.4 cm in maximum dimension. FREE FLUID: None. US/US abdomen comp w elastography IMPRESSION: 1. There is hepatomegaly. 2. There is generalized increase in hepatic echotexture, consistent with fatty infiltration or hepatocellular disease. Please correlate clinically. No focal hepatic mass or intrahepatic biliary dilatation is seen. 3. Liver elastography: Although measurements suggest a high probability of normal liver stiffness, there is statistical variability of the sampling which decreases accuracy. Code(s): K76.0 - Fatty (change of) liver, not elsewhere classified Category: Medical (4) Chronic idiopathic constipation: Code(s): K59.04 - Chronic idiopathic constipation Category: Medical (5) Gallstones: Code(s): K80.20 - Calculus of gallbladder without cholecystitis without obstruction Category: Medical Plan Her rectal pain is resolving and she is worried about when I go off of 2 meds. I reassure her that she can continue both the senna and the colace [facility] w/o any adverse [facility] effects. This only occurs in extreme laxative abuse. She has been dieting and going to the gym and she has lost 10 lbs! We will recheck her liver labs in 3 mos and see how this reflects on her liver function. ROV 3 mos. TODAY'S VISIT She stopped senna because she was reading it can cause my colon to get lazy. She is using colace bid, but still has pain with defecation. She has failed lido cream and OTC roid cream. she also is struggling with gas trapping. Has some LLQ pain, ? spasm, trial benty also coud have rectal spasm superimposed on roids and/or fissure. She had a flex sig in June but will need a full scope when she turns 44. Will repeat liver monitoring. Return office visit in 3 months [facility] Medical History Lichen sclerosus Fatty liver Vulvar fissure Asthma Gallstones Hx of iron deficiency anemia Chronic idiopathic constipation Hepatic steatosis Surgical History H/O colonoscopy History of partial hysterectomy H/O sinus surgery S/P tubal ligation S/P tonsillectomy S/P Social History Household Members: Spouse and Children Alcohol intake: never Patient Tobacco Use Status: Never used Tobacco service: No Current occupational status: employed Current occupation: [employer] Review of Systems Const Denies fatigue, Denies fever(s), Denies night sweats, Denies poor appetite and Denies weight loss ENT Reports Normal hearing present, Denies dental pain, Denies dysphagia, Denies hearing loss, Denies mouth pain, Denies odynophagia, Denies throat swelling, Denies tongue swelling and Reports other (Dentition adequate) Card Reports no additional complaints Resp Reports no additional complaints GI Details: Rectal pain Denies abdominal pain, Denies melena, Denies bloating, Reports hematochezia, Reports constipation, Denies GI cramping, Denies dysphagia, Denies excessive flatus, Denies early satiety, Denies heartburn, Denies diarrhea, Denies nausea, Denies odynophagia, Denies vomiting and Denies hematemesis Skin/Breast Denies pruritus, Denies lesions, Denies rash and Denies jaundice Neuro Reports Normal hearing present and Denies Abnormal speech present Endo Denies fatigue Aller/Immun Denies throat swelling and Denies tongue swelling Physical Exam Const General: cooperative, no acute distress, well developed and well groomed Nutritional Appearance: well nourished and obese Orientation/consciousness: oriented to person, oriented to place and oriented to time Limitations: No language barrier HEENT Head: Yes normocephalic and Yes atraumatic Eyes General: appearance normal, both eyes and all related structures Pupils: Equal, round and reactive pupils present Neck Neck: Yes normal visual inspection and Yes no lymphadenopathy Thyroid: Thyroid normal Resp Effort & Inspection: normal respiratory effort and able to speak in complete sentences Auscultation: clear to auscultation bilaterally Cardio Rate: regular rate Rhythm: regular rhythm Heart sounds: Normal, physiologic split S2 sound present Peripheral pulses: radial pulses present and posterior tibial pulses present GI Inspection: No distended, No Abdominal panniculus present and Yes obesity Palpation (GI): Soft to palpation, nontender, no guarding, not rigid and No hepatosplenomegaly present Percussion: Yes normal to percussion Auscultation: normal bowel sounds Rectal Exam - Female: External hemorrhoid(s) present (at 2:00 and line through could be fissure as well. ) Skin General skin exam: no rashes or lesions noted, turgor normal, skin not dry, no jaundice, No spider nevi and no striae Rashes: no rashes Nails: normal Neuro General: oriented to person, oriented to place and oriented to time Cranial nerves: Yes Equal, round and reactive pupils present and Yes Normal hearing present Speech: No Abnormal speech present Extrem General: Yes normal to inspection, No clubbing, No cyanosis and No edema Psych Appearance: grossly normal and well kempt Mental Status: mental status grossly normal Speech and movement: Normal speech and movement present Affect: normal affect Attitude: cooperative Thought process: Normal thought process present and not confabulating Thought content: Normal thought content present Insight: Limited insight present (Psych) Judgement: Limited judgement present (Psych) Assessment & Plan Assessment & Plan (1) GERD (gastroesophageal reflux disease): Code(s): K21.9 - Gastro-esophageal reflux disease without esophagitis Category: Medical (2) Chronic idiopathic constipation: Code(s): K59.04 - Chronic idiopathic constipation Category: Medical (3) Hepatic steatosis: Comment: Baseline Laboratory Tests 12/12/21 WBC 11.6 H Hgb 10.8 L Hct 36.1 L MCV 75.2 L MCH 22.5 L Estimated GFR > 60 Direct Bilirubin 0.2 Total Bilirubin 0.5 AST 16 ALT 20 Alkaline Phosphatase 72 Alpha Fetoprotein 2.0 ULTRASOUND OF THE ABDOMEN WITH ELASTOGRAPHY 12/17/21? (F0-F1) US WITH ELASTOGRAPHY 06/04/23 (F 0) CURRENT LABORATORY RESULTS 06/03/23 10:17 Direct Bilirubin 0.3 AST 32 H ALT 35 H Alkaline Phosphatase 78 Alpha Fetoprotein 1.8 US WITH ELASTOGRAPHY 06/04/23 (F 0) FINDINGS: PANCREAS: Normal. The visualized pancreatic head and body are normal in appearance. The remainder of the pancreas is obscured from visualization by the overlying bowel gas. ABDOMINAL AORTA: The proximal, middle, and distal aortic segments are normal in caliber. INFERIOR VENA CAVA: Visualized portions are normal. LIVER: Normal. The liver demonstrates normal size, contour and echogenicity. No focal lesion or intrahepatic biliary duct dilatation. The right lobe measures 20.6 cm in length. The left lobe measures 14.0 cm in length. Portal flow is towards the liver (hepatopetal). Shear wave liver elastography median stiffness is 1.27 m/s (reference: normal median stiffness is 1.3 m/s or less). IQR/median stiffness to assess sampling precision is 0.19 (reference: good quality data set is IQR/median stiffness of 0.15 or less). GALLBLADDER: Normal. The gallbladder is physiologically distended without evidence of stones, sludge, polyps, wall thickening or pericholecystic fluid. COMMON BILE DUCT: Normal in caliber measuring 0.4 cm in diameter. RIGHT KIDNEY: Normal. No hydronephrosis. No renal calculi or focal parenchymal lesions. The kidney measures 11.7 cm in maximum dimension. LEFT KIDNEY: Normal. No hydronephrosis. No renal calculi or focal parenchymal lesions. The kidney measures 10.9 cm in maximum dimension. SPLEEN: Normal. The spleen measures 10.4 cm in maximum dimension. FREE FLUID: None. US/US abdomen comp w elastography IMPRESSION: 1. There is hepatomegaly. 2. There is generalized increase in hepatic echotexture, consistent with fatty infiltration or hepatocellular disease. Please correlate clinically. No focal hepatic mass or intrahepatic biliary dilatation is seen. 3. Liver elastography: Although measurements suggest a high probability of normal liver stiffness, there is statistical variability of the sampling which decreases accuracy. Code(s): K76.0 - Fatty (change of) liver, not elsewhere classified Category: Medical (4) Hemorrhoids: Code(s): K64.9 - Unspecified hemorrhoids Category: Medical (5) Rectal pain: Comment: ? rectal fissure s/p bladder sling surgery Code(s): K62.89 - Other specified diseases of anus and rectum Category: Medical Plan She stopped senna because she was reading it can cause my colon to get lazy. She is using colace bid, but still has pain with defecation. She has failed lido cream and OTC roid cream. she also is struggling with gas trapping. Has some LLQ pain, ? spasm, trial benty also coud have rectal spasm superimposed on roids and/or fissure. She had a flex sig in June but will need a full scope when she turns 44. Will repeat liver monitoring. Rectal exam does show a hemorrhoid with what appears to be a fissure going straight through the area of the external hemorrhoid. It is possible she has more than 1 problem but she also could have an element of rectal spasm contributing to her pain. Return office visit in 3 months Orders: Orders Alpha Fetoprotein Today K64.9 - Unspecified hemorrhoids, K76.0 - Fatty (change of) liver, not elsewhere classified US abdomen complete Today K64.9 - Unspecified hemorrhoids, K76.0 - Fatty (change of) liver, not elsewhere classified Comprehensive Met. Panel Today K64.9 - Unspecified hemorrhoids, K76.0 - Fatty (change of) liver, not elsewhere classified Referrals Colon & Rectal Referral K62.89 - Other specified diseases of anus and rectum Medications: New simethicone after meals 180 mg PO QID 30 days 120 caps 3RF hydrocortisone 2.5% (Proctosol HC) BE SURE TO INCLUDE RECTAL APPICATOR!! 1 appl OH BID 30 grams 6RF hemorrhoids K64.9 - Unspecified hemorrhoids dicyclomine 20 mg PO QID 30 days 120 tabs 1RF Discontinued lidocaine 5% use OH bid for rectal pain Discontinued Reason: Doctor's Order 1 appl topical BID 30 grams 3RF K62.89 - Other specified diseases of anus and rectum sennosides (senna) Discontinued Reason: Doctor's Order 17.2 mg (2 x 8.6 mg) PO BEDTIME 30 days 60 caps 6RF constipation K59.04 - Chronic idiopathic constipation Coding Level of Care Code Est Pt Level 4 (67672) Diagnoses GERD (gastroesophageal reflux disease) K21.9 Chronic idiopathic constipation K59.04 Hepatic steatosis K76.0 Hemorrhoids K64.9 Rectal pain K62.89
[2023-12-02 14:56] VITALS: BP 117/62; PULSE 88; BMI 34.7
== END 2023-12-02 15:39 | disposition home or self-care (01) ==
PROVIDERS: PCP Internal Medicine; Visit Provider Nurse Practitioner
DX: K21.9 Gastro-esophageal reflux disease without esophagitis (principal); K59.04 Chronic idiopathic constipation; K76.0 Fatty (change of) liver, not elsewhere classified; K64.9 Unspecified hemorrhoids; K62.89 Other specified diseases of anus and rectum
CPT/HCPCS: 99214

== ENCOUNTER → 2023-12-02 14:47 | Outpatient (BNVA) | payer OTHER, SELFPAY | PROVIDERS: PCP Internal Medicine; Visit Provider Nurse Practitioner | DX: K21.9 Gastro-esophageal reflux disease without esophagitis (principal); K59.04 Chronic idiopathic constipation; K76.0 Fatty (change of) liver, not elsewhere classified; K62.89 Other specified diseases of anus and rectum; K64.4 Residual hemorrhoidal skin tags | CPT/HCPCS: 99212 ==

== ENCOUNTER 2023-12-10 08:04 | Outpatient (REF) | payer OTHER, SELFPAY ==
--- NOTE | ~2023-12-10 | US_ITS ---
EXAMINATION: US ABDOMEN COMPLETE CLINICAL INFORMATION: Fatty (change of) liver, not elsewhere classified. COMPARISON: Ultrasound abdomen complete 06/03/2023. Ultrasound abdomen limited 08/29/2022. TECHNIQUE: Real-time imaging of the abdominal viscera. Limited visualization due to bowel gas. FINDINGS: PANCREAS: Limited visualization of pancreatic tail and head. Imaged portion of pancreatic body is unremarkable. ABDOMINAL AORTA: Limited visualization. Imaged portions are unremarkable in caliber. INFERIOR VENA CAVA: Visualized portions are normal. LIVER: Hepatomegaly, 17.7 cm. Increased hepatic parenchymal heterogeneity and echogenicity could be associated with hepatocellular disease/hepatic steatosis and substantially limits visualization. Correlation with liver function tests and clinical exam recommended to determine further management. GALLBLADDER: Cholelithiasis. No gallbladder wall thickening. COMMON BILE DUCT: Normal in caliber measuring 0.3 cm in diameter. RIGHT KIDNEY: No hydronephrosis. No renal calculi. Limited visualization. The kidney measures 10.9 cm in maximum dimension. LEFT KIDNEY: No hydronephrosis. No renal calculi. Limited visualization. The kidney measures 11.9 cm in maximum dimension. SPLEEN: Normal. The spleen measures 10.5 cm in maximum dimension. FREE FLUID: None. US/US abdomen complete IMPRESSION: 1. Hepatomegaly, 17.7 cm. Increased hepatic parenchymal heterogeneity and echogenicity could be associated with hepatocellular disease/hepatic steatosis and substantially limits visualization. Correlation with liver function tests and clinical exam recommended to determine further management. 2. Cholelithiasis. No gallbladder wall thickening.,
[2023-12-10 09:48] LABS: Alanine Aminotransferase 20 U/L (0-31); Albumin Level 4.1 g/dL (3.5-5.0); Alkaline Phosphatase 82 U/L (39-117); Anion Gap 11 (12-20); Aspartate Amino Transferase 14 U/L (5-31); Bilirubin Total 0.5 mg/dL (0.0-1.0); Blood Urea Nitrogen 17 mg/dL (9-16); Calcium 9.4 mg/dL (8.4-10.2); Carbon Dioxide 26 mmol/L (22-29); Chloride 106 mmol/L (96-108); Estimated Glomerular Filt Rate > 60; Glucose Random 125 mg/dL (60-115); Potassium 4.7 mmol/L (3.3-5.1); Sodium 138 mmol/L (135-145); Total Protein 7.7 g/dL (6.5-8.0)
== END 2023-12-10 08:05 | disposition home or self-care (01) ==
LOC: HO.US 08:04
PROVIDERS: PCP Internal Medicine; Visit Provider Nurse Practitioner
DX: K76.0 Fatty (change of) liver, not elsewhere classified (principal); K64.9 Unspecified hemorrhoids
CPT/HCPCS: 36415; 76700; 80053; 82105

== ENCOUNTER 2024-04-08 15:59 | Outpatient (AMB) | payer OTHER, SELFPAY ==
--- NOTE | 2024-04-08 16:01 | A.OFFVIS_ITS ---
Vital Signs 04/08/24 16:02 Height 5 ft 2 in Weight 196 lb 10.437 oz BMI 36.0 BP 128/80 Blood Pressure Location Lt brachial Position Sitting Pulse 87 Intake Visit Reasons: 3 months follow up Intake Note: Angeli presents in office today in 3 months follow up of labs and US. CC: Patient reports that she is doing a lot better with a compound cream prescribed by colon and rectal surgery. 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: No Allergies metronidazole [From Flagyl] Allergy (Mild, Verified 04/08/24 16:06) Rash oxycodone [OXYCODONE] Allergy (Unknown, Verified 04/08/24 16:06) NAUSEA & VOMITING, nausea HPI HPI 3 months follow up: Details: Assessment & Plan (1) GERD (gastroesophageal reflux disease): Code(s): K21.9 - Gastro-esophageal reflux disease without esophagitis Category: Medical (2) Chronic idiopathic constipation: Code(s): K59.04 - Chronic idiopathic constipation Category: Medical (3) Hepatic steatosis: Comment: Baseline Laboratory Tests 12/12/21 WBC 11.6 H Hgb 10.8 L Hct 36.1 L MCV 75.2 L MCH 22.5 L Estimated GFR > 60 Direct Bilirubin 0.2 Total Bilirubin 0.5 AST 16 ALT 20 Alkaline Phosphatase 72 Alpha Fetoprotein 2.0 ULTRASOUND OF THE ABDOMEN WITH ELASTOGRAPHY 12/17/21? (F0-F1) US WITH ELASTOGRAPHY 06/04/23 (F 0) CURRENT LABORATORY RESULTS 06/03/23 10:17 Direct Bilirubin 0.3 AST 32 H ALT 35 H Alkaline Phosphatase 78 Alpha Fetoprotein 1.8 US WITH ELASTOGRAPHY 06/04/23 (F 0) FINDINGS: PANCREAS: Normal. The visualized pancreatic head and body are normal in appearance. The remainder of the pancreas is obscured from visualization by the overlying bowel gas. ABDOMINAL AORTA: The proximal, middle, and distal aortic segments are normal in caliber. INFERIOR VENA CAVA: Visualized portions are normal. LIVER: Normal. The liver demonstrates normal size, contour and echogenicity. No focal lesion or intrahepatic biliary duct dilatation. The right lobe measures 20.6 cm in length. The left lobe measures 14.0 cm in length. Portal flow is towards the liver (hepatopetal). Shear wave liver elastography median stiffness is 1.27 m/s (reference: normal median stiffness is 1.3 m/s or less). IQR/median stiffness to assess sampling precision is 0.19 (reference: good quality data set is IQR/median stiffness of 0.15 or less). GALLBLADDER: Normal. The gallbladder is physiologically distended without evidence of stones, sludge, polyps, wall thickening or pericholecystic fluid. COMMON BILE DUCT: Normal in caliber measuring 0.4 cm in diameter. RIGHT KIDNEY: Normal. No hydronephrosis. No renal calculi or focal parenchymal lesions. The kidney measures 11.7 cm in maximum dimension. LEFT KIDNEY: Normal. No hydronephrosis. No renal calculi or focal parenchymal lesions. The kidney measures 10.9 cm in maximum dimension. SPLEEN: Normal. The spleen measures 10.4 cm in maximum dimension. FREE FLUID: None. US/US abdomen comp w elastography IMPRESSION: 1. There is hepatomegaly. 2. There is generalized increase in hepatic echotexture, consistent with fatty infiltration or hepatocellular disease. Please correlate clinically. No focal hepatic mass or intrahepatic biliary dilatation is seen. 3. Liver elastography: Although measurements suggest a high probability of normal liver stiffness, there is statistical variability of the sampling which decreases accuracy. Code(s): K76.0 - Fatty (change of) liver, not elsewhere classified Category: Medical (4) Hemorrhoids: Code(s): K64.9 - Unspecified hemorrhoids Category: Medical (5) Rectal pain: Comment: ? rectal fissure s/p bladder sling surgery Code(s): K62.89 - Other specified diseases of anus and rectum Category: Medical Plan She stopped senna because she was reading it can cause my colon to get lazy. She is using colace bid, but still has pain with defecation. She has failed lido cream and OTC roid cream. she also is struggling with gas trapping. Has some LLQ pain, ? spasm, trial benty also coud have rectal spasm superimposed on roids and/or fissure. She had a flex sig in June but will need a full scope when she turns 44. Will repeat liver monitoring. Rectal exam does show a hemorrhoid with what appears to be a fissure going straight through the area of the external hemorrhoid. It is possible she has more than 1 problem but she also could have an element of rectal spasm contributing to her pain. Return office visit in 3 months Orders: Orders Alpha Fetoprotein Today K64.9 - Unspecified hemorrhoids, K76.0 - Fatty (change of) liver, not elsewhere classified US abdomen complete Today K64.9 - Unspecified hemorrhoids, K76.0 - Fatty (change of) liver, not elsewhere classified Comprehensive Met. Panel Today K64.9 - Unspecified hemorrhoids, K76.0 - Fatty (change of) liver, not elsewhere classified Referrals Colon & Rectal Referral K62.89 - Other specified diseases of anus and rectum Medications: New simethicone after meals 180 mg PO QID 30 days 120 caps 3RF hydrocortisone 2.5% (Proctosol HC) BE SURE TO INCLUDE RECTAL APPICATOR!! 1 appl ND BID 30 grams 6RF hemorrhoids K64.9 - Unspecified hemorrhoids dicyclomine 20 mg PO QID 30 days 120 tabs 1RF Discontinued lidocaine 5% use ND bid for rectal pain Discontinued Reason: Doctor's Order 1 appl topical BID 30 grams 3RF K62.89 - Other specified diseases of anus and rectum sennosides (senna) Discontinued Reason: Doctor's Order 17.2 mg (2 x 8.6 mg) PO BEDTIME 30 days 60 caps 6RF constipation K59.04 - Chronic idiopathic constipation LABS: Laboratory Tests 12/10/23 08:59 Estimated GFR > 60 Total Bilirubin 0.5 AST 14 ALT 20 Alkaline Phosphatase 82 Alpha Fetoprotein 2.0 ULTRASOUND OF THE ABDOMEN 12/29/23 FINDINGS: PANCREAS: Limited visualization of pancreatic tail and head. Imaged portion of pancreatic body is unremarkable. ABDOMINAL AORTA: Limited visualization. Imaged portions are unremarkable in caliber. INFERIOR VENA CAVA: Visualized portions are normal. LIVER: Hepatomegaly, 17.7 cm. Increased hepatic parenchymal heterogeneity and echogenicity could be associated with hepatocellular disease/hepatic steatosis and substantially limits visualization. Correlation with liver function tests and clinical exam recommended to determine further management. GALLBLADDER: Cholelithiasis. No gallbladder wall thickening. COMMON BILE DUCT: Normal in caliber measuring 0.3 cm in diameter. RIGHT KIDNEY: No hydronephrosis. No renal calculi. Limited visualization. The kidney measures 10.9 cm in maximum dimension. LEFT KIDNEY: No hydronephrosis. No renal calculi. Limited visualization. The kidney measures 11.9 cm in maximum dimension. SPLEEN: Normal. The spleen measures 10.5 cm in maximum dimension. FREE FLUID: None. US/US abdomen complete IMPRESSION: 1. Hepatomegaly, 17.7 cm. Increased hepatic parenchymal heterogeneity and echogenicity could be associated with hepatocellular disease/hepatic steatosis and substantially limits visualization. Correlation with liver function tests and clinical exam recommended to determine further management. 2. Cholelithiasis. No gallbladder wall thickening., TODAY'S VISIT She saw the colorectal surgeon in [place] and they sent her to a compounding pharmacy for a special cream. SHe had to pay $75 for it, but it is working for her rectal pain. She will bring me in the rx. She continues on colace, bentyl and simethicone. We review her liver imaging and labs and her GOMES appears to be stable. ROV 3 mos. [facility] Medical History Lichen sclerosus Fatty liver Vulvar fissure Asthma Gallstones Hx of iron deficiency anemia Chronic idiopathic constipation Hepatic steatosis Surgical History H/O colonoscopy History of partial hysterectomy H/O sinus surgery S/P tubal ligation S/P tonsillectomy S/P Social History Household Members: Spouse and Children Alcohol intake: never Patient Tobacco Use Status: Never used Tobacco service: No Current occupational status: employed Current occupation: [employer] Review of Systems Const Denies fatigue, Denies fever(s), Denies night sweats, Denies poor appetite and Denies weight loss Eyes Details: glasses Reports requires corrective lenses ENT Reports Normal hearing present, Denies dental pain, Denies dysphagia, Denies hearing loss, Denies mouth pain, Denies odynophagia, Denies throat swelling, Denies tongue swelling and Reports other (Dentition adequate) Card Reports no additional complaints Resp Reports no additional complaints GI Details: Denies abdominal pain, Denies melena, Denies bloating, Denies hematochezia, Reports constipation, Reports GI cramping, Denies dysphagia, Denies excessive flatus, Denies early satiety, Reports heartburn, Denies diarrhea, Denies nausea, Denies odynophagia, Denies vomiting and Denies hematemesis Skin/Breast Denies pruritus, Denies lesions, Denies rash and Denies jaundice Neuro Reports Normal hearing present and Denies Abnormal speech present Endo Denies fatigue Aller/Immun Denies throat swelling and Denies tongue swelling Physical Exam Vital Signs: Last Vital Signs Pulse 87 04/08/24 16:02 BP 128/80 04/08/24 16:02 BMI result Body Mass Index 36.0 Const General: cooperative, no acute distress, well developed and well groomed Nutritional Appearance: well nourished and obese Orientation/consciousness: oriented to person, oriented to place and oriented to time Limitations: No language barrier HEENT Head: Yes normocephalic and Yes atraumatic Eyes General: appearance normal, both eyes and all related structures Pupils: Equal, round and reactive pupils present Neck Neck: Yes normal visual inspection and Yes no lymphadenopathy Thyroid: Thyroid normal Resp Effort & Inspection: normal respiratory effort and able to speak in complete sentences Auscultation: clear to auscultation bilaterally Cardio Rate: regular rate Rhythm: regular rhythm Heart sounds: Normal, physiologic split S2 sound present Peripheral pulses: radial pulses present and posterior tibial pulses present GI Inspection: No distended, No Abdominal panniculus present and Yes obesity Palpation (GI): Soft to palpation, nontender, no guarding, not rigid and No hepatosplenomegaly present Percussion: Yes normal to percussion Auscultation: normal bowel sounds Rectal Exam - Female: deferred Skin General skin exam: no rashes or lesions noted, turgor normal, skin not dry, no jaundice, No spider nevi and no striae Rashes: no rashes Nails: normal Neuro General: oriented to person, oriented to place and oriented to time Cranial nerves: Yes Equal, round and reactive pupils present and Yes Normal hearing present Speech: No Abnormal speech present Extrem General: Yes normal to inspection, No clubbing, No cyanosis and No edema Psych Appearance: grossly normal and well kempt Mental Status: mental status grossly normal Speech and movement: Normal speech and movement present Affect: normal affect Attitude: cooperative Thought process: Normal thought process present and not confabulating Thought content: Normal thought content present Insight: Fair insight present (Psych) Judgement: Fair judgement present (Psych) Results Reviewed Results Reviewed: Laboratory Tests 12/10/23 08:59 Estimated GFR > 60 Total Bilirubin 0.5 AST 14 ALT 20 Alkaline Phosphatase 82 Alpha Fetoprotein 2.0 ULTRASOUND OF THE ABDOMEN 12/29/23 FINDINGS: PANCREAS: Limited visualization of pancreatic tail and head. Imaged portion of pancreatic body is unremarkable. ABDOMINAL AORTA: Limited visualization. Imaged portions are unremarkable in caliber. INFERIOR VENA CAVA: Visualized portions are normal. LIVER: Hepatomegaly, 17.7 cm. Increased hepatic parenchymal heterogeneity and echogenicity could be associated with hepatocellular disease/hepatic steatosis and substantially limits visualization. Correlation with liver function tests and clinical exam recommended to determine further management. GALLBLADDER: Cholelithiasis. No gallbladder wall thickening. COMMON BILE DUCT: Normal in caliber measuring 0.3 cm in diameter. RIGHT KIDNEY: No hydronephrosis. No renal calculi. Limited visualization. The kidney measures 10.9 cm in maximum dimension. LEFT KIDNEY: No hydronephrosis. No renal calculi. Limited visualization. The kidney measures 11.9 cm in maximum dimension. SPLEEN: Normal. The spleen measures 10.5 cm in maximum dimension. FREE FLUID: None. US/US abdomen complete IMPRESSION: 1. Hepatomegaly, 17.7 cm. Increased hepatic parenchymal heterogeneity and echogenicity could be associated with hepatocellular disease/hepatic steatosis and substantially limits visualization. Correlation with liver function tests and clinical exam recommended to determine further management. 2. Cholelithiasis. No gallbladder wall thickening., Assessment & Plan Assessment & Plan (1) Gallstones: Code(s): K80.20 - Calculus of gallbladder without cholecystitis without obstruction Category: Medical (2) Hepatic steatosis: Comment: Baseline Laboratory Tests 12/12/21 WBC 11.6 H Hgb 10.8 L Hct 36.1 L MCV 75.2 L MCH 22.5 L Estimated GFR > 60 Direct Bilirubin 0.2 Total Bilirubin 0.5 AST 16 ALT 20 Alkaline Phosphatase 72 Alpha Fetoprotein 2.0 ULTRASOUND OF THE ABDOMEN WITH ELASTOGRAPHY 12/17/21? (F0-F1) US WITH ELASTOGRAPHY 06/04/23 (F 0) CURRENT LABORATORY RESULTS 12/10/23 08:59 Estimated GFR > 60 Total Bilirubin 0.5 AST 14 ALT 20 Alkaline Phosphatase 82 Alpha Fetoprotein 2.0 ULTRASOUND OF THE ABDOMEN 12/29/23 IMPRESSION: 1. Hepatomegaly, 17.7 cm. Increased hepatic parenchymal heterogeneity and echogenicity could be associated with hepatocellular disease/hepatic steatosis and substantially limits visualization. Correlation with liver function tests and clinical exam recommended to determine further management. 2. Cholelithiasis. No gallbladder wall thickening. Code(s): K76.0 - Fatty (change of) liver, not elsewhere classified Category: Medical (3) Chronic idiopathic constipation: Code(s): K59.04 - Chronic idiopathic constipation Category: Medical (4) GERD (gastroesophageal reflux disease): Code(s): K21.9 - Gastro-esophageal reflux disease without esophagitis Category: Medical Plan She saw the colorectal surgeon in [place] and they sent her to a compounding pharmacy for a special cream. SHe had to pay $75 for it, but it is working for h er rectal pain. She will bring me in the rx. She continues on colace, bentyl and simethicone. We review her liver imaging and labs and her GOMES appears to be stable. ROV 3 mos. Coding Level of Care Code Est Pt Level 3 (52924) Diagnoses Gallstones K80.20 Hepatic steatosis K76.0 Chronic idiopathic constipation K59.04 GERD (gastroesophageal reflux disease) K21.9
[2024-04-08 16:02] VITALS: BP 128/80; PULSE 87; BMI 36.0
== END 2024-04-08 16:49 | disposition home or self-care (01) ==
PROVIDERS: PCP Internal Medicine; Visit Provider Nurse Practitioner
DX: K80.20 Calculus of gallbladder without cholecystitis without obstruction (principal); K76.0 Fatty (change of) liver, not elsewhere classified; K59.04 Chronic idiopathic constipation; K21.9 Gastro-esophageal reflux disease without esophagitis
CPT/HCPCS: 99213

== ENCOUNTER → 2024-04-08 15:59 | Outpatient (BNVA) | payer OTHER, SELFPAY | PROVIDERS: PCP Internal Medicine; Visit Provider Nurse Practitioner | DX: K80.20 Calculus of gallbladder without cholecystitis without obstruction (principal); K76.0 Fatty (change of) liver, not elsewhere classified; K59.04 Chronic idiopathic constipation; K21.9 Gastro-esophageal reflux disease without esophagitis | CPT/HCPCS: 99212 ==

== ENCOUNTER 2024-11-22 11:26 | Outpatient (AMB) | payer OTHER, SELFPAY ==
--- NOTE | 2024-11-22 11:29 | MHC.OFFVIS ---
Vital Signs 11/22/24 11:31 Height 5 ft 2 in Weight 191 lb 12.835 oz BMI 35.1 BP 121/59 L Blood Pressure Location Lt brachial Position Sitting Pulse 70 Intake Visit Reasons: CIC f/u Intake Note: Angeli presents in the office as a follow up for CIC. CC: Sometimes she still has the constipation but it is a little better. 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 Required: No Allergies metronidazole (From Flagyl) Allergy (Mild, Verified 11/22/24 11:29) Rash oxycodone (OXYCODONE) Allergy (Unknown, Verified 11/22/24 11:29) NAUSEA & VOMITING, nausea HPI HPI CIC f/u: Details: Assessment & Plan (1) Gallstones: Code(s): K80.20 - Calculus of gallbladder without cholecystitis without obstruction Category: Medical (2) Hepatic steatosis: Comment: Baseline Laboratory Tests 12/12/21 WBC 11.6 H Hgb 10.8 L Hct 36.1 L MCV 75.2 L MCH 22.5 L Estimated GFR > 60 Direct Bilirubin 0.2 Total Bilirubin 0.5 AST 16 ALT 20 Alkaline Phosphatase 72 Alpha Fetoprotein 2.0 ULTRASOUND OF THE ABDOMEN WITH ELASTOGRAPHY 12/17/21? (F0-F1) US WITH ELASTOGRAPHY 06/04/23 (F 0) CURRENT LABORATORY RESULTS 12/10/23 08:59 Estimated GFR > 60 Total Bilirubin 0.5 AST 14 ALT 20 Alkaline Phosphatase 82 Alpha Fetoprotein 2.0 ULTRASOUND OF THE ABDOMEN 12/29/23 IMPRESSION: 1. Hepatomegaly, 17.7 cm. Increased hepatic parenchymal heterogeneity and echogenicity could be associated with hepatocellular disease/hepatic steatosis and substantially limits visualization. Correlation with liver function tests and clinical exam recommended to determine further management. 2. Cholelithiasis. No gallbladder wall thickening. Code(s): K76.0 - Fatty (change of) liver, not elsewhere classified Category: Medical (3) Chronic idiopathic constipation: Code(s): K59.04 - Chronic idiopathic constipation Category: Medical (4) GERD (gastroesophageal reflux disease): Code(s): K21.9 - Gastro-esophageal reflux disease without esophagitis Category: Medical Plan She saw the colorectal surgeon in [place] and they sent her to a compounding pharmacy for a special cream. She had to pay $75 for it, but it is working for her rectal pain. She will bring me in the rx. She continues on colace, bentyl and simethicone. We review her liver imaging and labs and her GOMES appears to be stable. ROV 3 mos. TODAY'S VISIT She continues on colace, bentyl and simethicone. She brought me a picture of the fissure cream and it was dilatzem and lidocaine 2% and 1.5% respectively applied bid. She asks about systemic sheila and asks if this is causing it. She is treated for this under her breasts. We discuss the unlikelihood of systemic sheila, but she can try OTC supplements for this if she wants. Her sx are intermittent as bloating upper abdoinal with some cramping. We discuss exercises to help pass gas. ROV 6 mos. She want me to fill out an FMLA form for her 6 mos appts. [facility] Medical History (Updated 11/22/24 @ 11:53 by EULALIO Morales) Diarrhea Vomiting Lichen sclerosus Fatty liver Vulvar fissure Asthma Gallstones Hx of iron deficiency anemia Chronic idiopathic constipation Hepatic steatosis Surgical History H/O colonoscopy History of partial hysterectomy H/O sinus surgery S/P tubal ligation S/P tonsillectomy S/P Social History Household Members: Spouse and Children Alcohol intake: never Patient Tobacco Use Status: Never used Tobacco service: No Current occupational status: employed Current occupation: [employer] Review of Systems Const Denies fatigue, Denies fever(s), Denies night sweats, Denies poor appetite and Denies weight loss Eyes Details: glasses Reports requires corrective lenses ENT Reports Normal hearing present, Denies dental pain, Denies dysphagia, Denies hearing loss, Denies mouth pain, Denies odynophagia, Denies throat swelling, Denies tongue swelling and Reports other (Dentition adequate) Card Reports no additional complaints Resp Reports no additional complaints GI Details: Denies abdominal pain, Denies melena, Reports bloating, Denies hematochezia, Reports constipation, Denies GI cramping, Denies dysphagia, Denies excessive flatus, Denies early satiety, Reports heartburn, Denies diarrhea, Denies nausea, Denies odynophagia, Denies vomiting and Denies hematemesis Skin/Breast Denies pruritus, Denies lesions, Denies rash and Denies jaundice Neuro Reports Normal hearing present and Denies Abnormal speech present Endo Denies fatigue Aller/Immun Denies throat swelling and Denies tongue swelling Physical Exam Vital Signs: Last Vital Signs Pulse 70 11/22/24 11:31 BP 121/59 L 11/22/24 11:31 BMI result Body Mass Index 35.1 Const General: cooperative, no acute distress, well developed and well groomed Nutritional Appearance: well nourished and obese Orientation/consciousness: oriented to person, oriented to place and oriented to time Limitations: No language barrier HEENT Head: Yes normocephalic and Yes atraumatic Eyes General: appearance normal, both eyes and all related structures Pupils: Equal, round and reactive pupils present Neck Neck: Yes normal visual inspection and Yes no lymphadenopathy Thyroid: Thyroid normal Resp Effort & Inspection: normal respiratory effort and able to speak in complete sentences Auscultation: clear to auscultation bilaterally Cardio Rate: regular rate Rhythm: regular rhythm Heart sounds: Normal, physiologic split S2 sound present Peripheral pulses: radial pulses present and posterior tibial pulses present GI Inspection: Yes distended, Yes Abdominal panniculus present and Yes obesity Palpation (GI): Soft to palpation, nontender, no guarding, not rigid and No hepatosplenomegaly present Percussion: Yes normal to percussion Auscultation: normal bowel sounds Rectal Exam - Female: deferred Skin General skin exam: no rashes or lesions noted, turgor normal, skin not dry, no jaundice, No spider nevi and no striae Rashes: no rashes Nails: normal Neuro General: oriented to person, oriented to place and oriented to time Cranial nerves: Yes Equal, round and reactive pupils present and Yes Normal hearing present Speech: No Abnormal speech present Extrem General: Yes normal to inspection, No clubbing, No cyanosis and No edema Psych Appearance: grossly normal and well kempt Mental Status: mental status grossly normal Speech and movement: Normal speech and movement present Affect: normal affect Attitude: cooperative Thought process: Normal thought process present and not confabulating Thought content: Normal thought content present Insight: Fair insight present (Psych) and Limited insight present (Psych) Judgement: Fair judgement present (Psych) and Limited judgement present (Psych) Assessment & Plan Assessment & Plan (1) GERD (gastroesophageal reflux disease): Code(s): K21.9 - Gastro-esophageal reflux disease without esophagitis Category: Medical (2) Chronic idiopathic constipation: Code(s): K59.04 - Chronic idiopathic constipation Category: Medical (3) Gallstones: Code(s): K80.20 - Calculus of gallbladder without cholecystitis without obstruction Category: Medical (4) Rectal pain: Comment: ? rectal fissure s/p bladder sling surgery Code(s): K62.89 - Other specified diseases of anus and rectum Category: Medical (5) Hemorrhoids: Code(s): K64.9 - Unspecified hemorrhoids Category: Medical Plan She continues on colace, bentyl and simethicone. She brought me a picture of the fissure cream and it was dilatzem and lidocaine 2% and 1.5% respectively applied bid. She asks about systemic sheila and asks if this is causing it. She is treated for this under her breasts. We discuss the unlikelihood of systemic sheila, but she can try OTC supplements for this if she wants. Her sx are intermittent as bloating upper abdominal with some cramping. We discuss exercises to help pass gas. It the above sx becomes more severe consider if gallstones are a part of the problem. ROV 6 mos. She want me to fill out an FMLA form for her 6 mos appts. Medications: Refilled docusate sodium 100 mg PO DAILY 30 caps 6RF Discontinued famotidine (Pepcid) Discontinued Reason: Patient no longer taking 40 mg PO BEDTIME 30 tabs 6RF K21.9 - Gastro-esophageal reflux disease without esophagitis simethicone after meals Discontinued Reason: Patient no longer taking 180 mg PO QID 30 days 120 caps 3RF hydrocortisone 2.5% (Proctosol HC) BE SURE TO INCLUDE RECTAL APPICATOR!! Discontinued Reason: Patient no longer taking 1 appl NE BID 30 grams 6RF hemorrhoids K64.9 - Unspecified hemorrhoids dicyclomine Discontinued Reason: Patient no longer taking 20 mg PO QID 30 days 120 tabs 1RF Coding Level of Care Code Est Pt Level 3 (80060) Diagnoses GERD (gastroesophageal reflux disease) K21.9 Chronic idiopathic constipation K59.04 Gallstones K80.20 Rectal pain K62.89 Hemorrhoids K64.9
[2024-11-22 11:31] VITALS: BP 121/59; PULSE 70; BMI 35.1
--- OUTSIDE RECORDS SUMMARY | 2024-11-22 13:04 | XMS_ITS | Clinical Summary ---
Author Organization [facility] [address] [place] [address] [place] [phone] Phone Care Team Providers Care Annealer Name Role Phone Belia Kessler MD Primary Care Provider [phone] Allergies Active Allergy Reactions Criticality Noted Date Comments Metronidazole Nausea Only Medium 06/19/2017 Body and face itching. No rash. Was using bactroban and flagyl at the time of the reaction, unable to determine cause of allergic reaction Body and face itching. No rash. Was using bactroban and flagyl at the time of the reaction, unable to determine cause of allergic reaction Body and face itching. No rash. Was using bactroban and flagyl at the time of the reaction, unable to determine cause of allergic reaction Mupirocin Nausea Only Medium 06/19/2017 Body and face itching. No rash. Was using bactroban and flagyl at the time of the reaction, unable to determine cause of allergic reaction Body and face itching. No rash. Was using bactroban and flagyl at the time of the reaction, unable to determine cause of allergic reaction Body and face itching. No rash. Was using bactroban and flagyl at the time of the reaction, unable to determine cause of allergic reaction Oxycodone-Acetaminophen Nausea And Vomiting 05/2009 Other reaction(s): vomiting Medications clobetasoL (TEMOVATE) 0.05 % ointment Apply a thin coat to the area nightly for two weeks, then MWF 06/22/19 21 Active docusate sodium (COLACE) 100 mg capsule Take 1 Capsule by mouth 2 times daily for 10 days. 10/24/19 21 Active EPINEPHrine 0.3 mg/0.3 mL syringe INJECT1 PEN INJECTOR INTRAMUSCULARLY SINGLE DOSE 10/17/19 22 Active diphenhydramine HCl (BENADRYL ALLERGY ORAL) Take by mouth. A ctive Lactobacillus acidophilus (PROBIOTIC ORAL) Take 1 capsule by mouth 1 (one) time each day. 09/24/19 24 Active ibuprofen (ADVIL,MOTRIN) 800 mg tablet Take 1 tablet (800 mg total) by mouth every 8 (eight) hours if needed. 05/19/20 24 Active fexofenadine (JESSICA) 180 mg tablet Take 1 tablet (180 mg total) by mouth 1 (one) time each day. Active montelukast (SINGULAIR) 10 mg tablet Take 1 tablet (10 mg total) by mouth 1 (one) time each day in the evening. 90 tablet 1 11/04/19 25 Active albuterol sulfate (ProAir RespiClick) 90 mcg/actuation aerosol powdr breath activated Inhale 108 mcg by mouth every 6 (six) hours if needed (wheezing or shortness of breath). 1 each 11/04/19 25 Active nystatin (MYCOSTATIN) 100,000 unit/gram powder Apply topically 2 (two) times a day. 60 g 11/04/19 25 026 Active cholecalciferol (VITAMIN D-3) 50 mcg (2,000 unit) capsule Take 1 capsule (2,000 Units total) by mouth 1 (one) time each day. 08/24/19 21 025 Discontin ued(Thera py completed ) sennosides 8.6 mg capsule Take 1 Tablet by mouth 2 times daily for 14 days. 02/24/20 23 025 Discontin ued(Thera py completed ) polyethylene glycol (MIRALAX) 17 gram packet Take 17 g by mouth 1 (one) time each day. 01/28/20 23 025 Discontin ued(Thera py completed ) montelukast (SINGULAIR) 10 mg tablet Take 1 tablet (10 mg total) by mouth 1 (one) time each day in the evening. 10/09/19 22 025 Discontin ued(Thera py completed ) UNABLE TO FIND Allergy Injection (ALLERGY MONTHLY INJECTION, HISTORIC) Inject as directed. Every 15 days 025 Discontin ued(Thera py completed ) albuterol sulfate (ProAir RespiClick) 90 mcg/actuation aerosol powdr breath activated Inhale 108 mcg by mouth. 11/22/19 22 025 Discontin ued(Reord er) Active Problems Problem Noted Date Diagnosed Date Fatty liver 11/03/2024 PTSD (post-traumatic stress disorder) 11/03/2024 Myofascial pain 09/26/2024 Assessment & Plan (09/28/2024 4:33 PM EDT): I counseled Sahnon that her findings are consistent with this diagnosis. I offered her a trigger point injection. She was open to trying it. Procedure Note Encounter Diagnosis Name Primary? Myofascial pain Yes Pt was consented for myofascial trigger point injection. She was placed int he supine position. The area was identified with one finger and the skin cleansed with alcohol. A spinal needle was inserted and advanced to the level of the fascia. The fascia overlying one muscle group was injected. A total of 10 cc of 0.25% Marcaine was injected in the area of most discomfort. Immediate improvement was noted. The needle was removed and a bandage was applied. The patient tolerated the procedure well. 09/28/2024 Addendum to marcaine concentration to reflect correct one used. Chronic back pain 03/02/2024 Skin cyst 02/23/2023 Overview (03/02/2024): Last Assessment & Plan: No evidence of infection. I recommended warm compress and call if spreading redness. S/P laparoscopic hysterectomy 02/23/2023 Dysmenorrhea 01/27/2023 Rectocele 08/15/2022 Overview (03/02/2024): Last Assessment & Plan: Discussed that we can refer to Urogyn for assistance, but would like to resolve issue with the fissure first. In addition, I explained that she needs to work on constipation to avoid recurrence in the future. Cystocele, midline 08/15/2022 Constipation 08/15/2022 Breast asymmetry 03/12/2022 Overview (03/02/2024): 03/2022 Right breast asymetry, follow up in 6 months Asthma due to seasonal allergies 11/21/2021 Overview (03/02/2024): Last Assessment & Plan: Asthma is only mild intermittent. At this point she does not need any further inhalers. She knows what to do and how to use the albuterol. She will continue following with her primary care physician. She also will continue with immunotherapy with the vending machine filler. Hyperlipidemia 06/26/2021 JACQUELIN (obstructive sleep apnea) 01/28/2021 Overview (03/02/2024): Home sleep study with sleep medicine services on 01/11/2021. Mild. 5 events per hour. Average oxygen saturation 95% and oxygen paola 85%. Trace snoring. Last Assessment & Plan: Minimal obstructive sleep apnea. We discussed different treatment options including CPAP and conservative medical management. She will try to lose weight. No need for CPAP at this point. Vulvar fissure 03/14/2020 Overview (03/02/2024): Lichen sclerosus Last Assessment & Plan: I explained to Shanon that his area has now expanded. Given findings of non- healing area in the setting of LS, which increases risk of vulvar cancer, I recommended she have this biopsied to rule out dVIN, HECTOR, cancer. She agrees to return. She will continue steroid for comfort for now. She was counseled that healing will require diligence given midline biopsy sites are hard to heal due to tension. Vitamin D deficiency 05/16/2016 Lichen sclerosus 01/16/2012 Overview (03/02/2024): Last Assessment & Plan: Reviewed findings with patient. I reviewed the importance of regular maintenance topical steroid use to prevent symptoms, further scarring, and squamous cell cancer of the vulva. I also explained the importance of regular follow up to ensure she has no evidence of precancerous or cancerous changes and that she is not having side effects from her medication. I reviewed areas of application and amount of medication to use. She will continue clobetasol. Iron deficiency anemia 02/13/2010 Encounters Date Type Department Care Team Description 11/03/2024 8:30 AM EDT Office Visit Adult Medicine [address] [phone] Belia Kessler MD Asthma due to seasonal allergies (Primary Dx); Vitamin D deficiency; JACQUELIN (obstructive sleep apnea); Mixed hyperlipidemia; Chronic idiopathic constipation; Fatty liver; PTSD (post-traumatic stress disorder); Restless leg syndrome; BMI 35.0-35.9,adult; Intertrigo 10/26/2024 Telephone Adult Medicine [address] [phone] Belia Kessler MD Forms/questionnaires (Permission for plasmapheresis/ Patient would like to notified when paperwork has been faxed.) 09/26/2024 3:45 PM EDT Office Visit Obstetrics and Gynecology - [address] [phone] Natalie Chen MD Myofascial pain (Primary Dx) 08/29/2024 9:45 AM EDT Office Visit Urogynecology - [address] [phone] Ama Jaimes MD Chronic left lower quadrant pain (Primary Dx); Obstructive defecation (CMS/HCC V24, CMS/HCC V28); Prolapse of anterior vaginal wall; Prolapse of posterior vaginal wall; Suprapubic pain 08/29/2024 Telephone Obstetrics and Gynecology [address] [phone] Natalie Chen MD Pelvic Pain from Last 3 Months Immunizations Name Administration Dates Next Due HPV 9-valent (Gardisil) 9yo to less than 46yo 05/01/2023,12/29/2022,10/28/2022 Influenza Quadravalent, MDCK , 0.5ml, preservative free (Flucelvax) 6mo and older 05/07/2021,02/14/2019 Influenza trivalent, with preservative (Fluzone; Afluria) 6mo and older 03/14/2020,03/17/2018,03/20/2017,2015,02/13/2010 Pneumococcal conjugate 20 va lent (Prevnar 20, PCV 20) 2mo and older 09/22/2023 Tdap Tetanus diptheria acell ular pertussis (Boostrix; Adacel) 7yo and older 09/06/2018,08/10/2008 Surgical History Surgery Date Site/Laterality Comments TONSILLECTOMY PROCEDURE: HISTORICAL TONSILLECTOMY TUBAL LIGATION PROCEDURE: HISTORICAL TUBAL LIGATION SECTION PROCEDURE: HISTORICAL DELIVERY; COMMENT: x3 OTHER SURGICAL HISTORY -1999 PROCEDURE: ---- OTHER ----; COMMENT: balloon procedure for sinus infections OTHER SURGICAL HISTORY PROCEDURE: HISTORICAL LAPAROSCOPIC HYSTERECTOMY WITH OR WITHOUT BSO; COMMENT: Tubes only w/ Uterosacral suspension w/ anterior and posterior colporrhaphy Medical History Medical History Date Comments Chronic back pain DX:Chronic michelle k pain Anemia DX:Anemia HSV (herpes simplex virus) a nogenital infection DX:HSV (herpes simplex virus ) anogenital infection 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 Asthma DX:Asthma Venereal disease 2002 DX:Venereal dis ease; COMMENT: Chlamydia, GC, HSV, Genital warts Lichen sclerosus 01/16/2012 DX:Lichen scler osus Fatty liver 2014 DX:Fatty liver; COMMENT: Fatty liver Family History Medical History Relation Name Comments Breast cancer Aunt m aunt No Known Problems Brother 1 half mater nal No Known Problems Brother 2 half mater nal No Known Problems Daughter Jodi : 2007 Basal cell carcinoma Father Other cancer Father Brain Other: HIV Father Arthritis Mother Other: AIDs Mother Other: HIVS Mother Other: Hep C Mother Diabetes Sister 1 half paternal Diabetes Sister 2 half paternal No Known Problems Sister 3 half pater nal Depression Son 1 Sebas : 07/05/1997 ADD / ADHD Son 2 Arpit : 10/25/2007 Other: ODD Son 2 Arpit Other: Deficiencies of factor II Son 3 Jamir : 11/06/2006 Colon cancer Neg Hx Heart attack Neg Hx Ovarian cancer Neg Hx Pancreatic cancer Neg Hx Prostate cancer Neg Hx Stroke Neg Hx Uterine cancer Neg Hx Relation Name Status Comments Aunt m aunt Brother 1 Alive Brother 2 Alive Daughter Jodi Alive Father Maternal Grandfather Maternal Grandmother Mother Liver Failure Paternal Grandfather Paternal Grandmother Sister 1 Alive Sister 2 Sister 3 Alive Son 1 Sebas Alive Son 2 Arpit Alive Son 3 Jamir Alive Social History Tobacco Use Types Packs/Day Years Used Date Smoking Tobacco: Never Smokeless Tobacco: Never Alcohol Use Standard Drinks/Week Comments No 0 (1 standard drink = 0.6 oz pur e alcohol) Comments No Sex and Gender Information Value Date Recorded Sex Assigned at Female 07/07/2024 4:50 PM EST Legal Sex Female 10:22 AM EST Gender Identity Female 07/07/2024 4:50 PM EST Sexual Orientation Straight 07/07/2024 4: 50 PM EST Obstetrics History Para Term AB IAB SAB Ectopic Multiple Livin g Live Births 4 4 4 0 0 0 0 0 0 4 4 Date Outcome GA Total Labor Labor/2nd/3rd Weight Sex Type Anes PTL Liliam A1 A5 Name Clin 1997 Term CS-Un spec Living 2001 Term Living 2006 Term CS-Un spec Living 2007 Term CS-Un spec Living Last Filed Vital Signs Vital Sign Reading Time Taken Comments Blood Pressure 112/70 11/03/2024 8:43 AM EDT Pulse 76 11/03/2024 8:43 AM EDT Temperature 36.6 C (97.9 F) 11/03/2024 8:43 AM EDT Respiratory Rate 14 11/03/2024 8:43 AM EDT Oxygen Saturation 98% 11/03/2024 8:43 AM EDT Inhaled Oxygen Concentration - - Weight 88.5 kg (195 lb) 11/03/2024 8:43 AM EDT Height 157.5 cm (5' 2 ) 11/03/2024 8:43 AM EDT Body Mass Index 35.67 11/03/2024 8:43 AM EDT Plan of Treatment Upcoming Encounters Date Type Department Care Team (Late st Contact Info) Description 11/25/2024 1:30 PM EDT Consult Bariatric Surgery - [place] [address] [place] [id number] Mindy Baeza PA [address] [place] [address] 01/02/2025 4:30 PM EDT Appointment Radiology Department - [address] [phone] 05/05/2025 11:00 AM EST Office Visit Adult Medicine [place] - [address] [phone] Belia Kessler MD [address] [place] [address] Health Maintenance Due Date Last Done Comments Hepatitis B Vaccines (1 of 3 - 19+ 3-dose series) 1998 Colorectal Cancer Screening: Colonoscopy 05/10/2022 Depression Screening 05/10/2022 Social Influencers of Health Screening 05/10/2022 Cervical Cancer Screening: HPV 10/09/2023 10/08/2018 COVID-19 Vaccine ( season) 2024 Breast Cancer Screening 06/25/2024 06/25/19 24, 09/05/2022, 03/07/2022, Additional history exists Influenza Vaccine (Season Ended) 2025 05/07/2021, 03/14/2020, 02/14/2019, Additional history exists DTaP,Tdap,and Td Vaccines (3 - Td or Tdap) 09/06/2028 09/06/2018, 08/10/2008 Cholesterol Screening (Lipid Panel) 11/03/2029 11/03/2024, 09/22/2023 HIV Screening Completed 10/06/2018 Hepatitis C Screening Completed 10/06/2018 HPV Vaccines Completed 05/01/2023, 12/01, 10/28/2022 Pneumococcal Vaccine: Pediatrics (0 to 5 Years) and At-Risk Patients (6 to 64 Years) Completed 09/22/2023 HIB Vaccines Aged Out No longer eligi ble based on patient's age to complete this topic Hepatitis A Vaccines Aged Out No long er eligible based on patient's age to complete this topic IPV Vaccines Aged Out No longer eligi ble based on patient's age to complete this topic MMR Vaccines Aged Out No longer eligi ble based on patient's age to complete this topic Meningococcal ACWY Vaccine Aged Out N o longer eligible based on patient's age to complete this topic Meningococcal B Vaccine Aged Out No l onger eligible based on patient's age to complete this topic RSV Immunization Patients Under 20 months Aged Out No longer eligible based on patient's age to complete this topic Varicella Vaccines Aged Out No longer eligible based on patient's age to complete this topic Procedures Procedure Name Priority Date/Time Associated Diagnosis Comments CBC WITH AUTO DIFFERENTIAL Routine 11/03/2024 9:41 AM EDT Asthma due to seasonal allergies CBC AND DIFFERENTIAL Routine 11/03/2024 9:41 AM EDT Asthma due to seasonal allergies COMPREHENSIVE METABOLIC PANEL Routine 11/03/2024 9:41 AM EDT Mixed hyperlipidemia LIPID PANEL WITH REFLEX TO DIRECT LDL Routine 11/03/2024 9:41 AM EDT Mixed hyperlipidemia HEMOGLOBIN A1C Routine 11/03/2024 9:41 AM EDT Mixed hyperlipidemia VITAMIN D 25 HYDROXY Routine 11/03/2024 9:41 AM EDT Vitamin D deficiency IRON AND TIBC Routine 11/03/2024 9:41 AM EDT Restless leg syndrome FERRITIN Routine 11/03/2024 9:41 AM EDT Restless leg syndrome VITAMIN B12 AND FOLATE Routine 11/03/2024 9:41 AM EDT Restless leg syndrome THYROID STIMULATING HORMONE WITH REFLEX TO FREE T4 AND FREE T3 Routine 11/03/2024 9:41 AM EDT BMI 35.0-35.9,adult POC URINE AUTO W/O MICRO Routine 08/29/2024 10:15 AM EDT Suprapubic pain SCREENING MAMMOGRAPHY BI 2-VIEW BREAST INC CAD Routine 06/25/2023 6:50 PM EST Encounter for other screening for malignant neoplasm of breast HM HPV Routine 10/08/2018 HEPATITIS C SCREENING Routine 10/06/2018 HIV SCREENING Routine 10/06/2018 from Last 3 Months or Most Recently Relevant to Health Maintenance Results * Thyroid stimulating hormone with reflex to free t4 and free t3 (11/03/2024 9:41 AM EDT) TSH 0.99 0.40 - 4.00 mcIU/mL LAB CHEMISTRY METHOD 11/03/2024 2:30 PM EDT [facility] Blood Venous blood specimen / Unknown Venipuncture / Unknown 11/03/2024 9:41 AM EDT 11/03/2024 9:41 AM EDT us Belia Kessler MD LAB BLOOD ORDERABLES Final Resul t Performing Organization Address City/[facility]/ZIP Co de Phone Number [facility] [address] [place] [address], [place] [phone] * Vitamin B12 and folate (11/03/2024 9:41 AM EDT) Pathologist [facility] Vitamin B-12 378 250 - 900 pcg/mL LAB CHEMISTRY METHOD 11/03/2024 1:16 PM EDT [facility] Folate 11.0 2.8 - 17.0 ng/ml LAB CHEMISTRY METHOD 11/03/2024 1:16 PM EDT [facility] Blood Venous blood specimen / Unknown Venipuncture / Unknown 11/03/2024 9:41 AM EDT 11/03/2024 9:41 AM EDT us Belia Kessler MD LAB BLOOD ORDERABLES Final Resul t Performing Organization Address City/[facility]/ZIP Co de Phone Number [facility] [address] [place] [address], [place] [phone] * (ABNORMAL) Lipid panel with reflex to direct LDL (11/03/2024 9:41 AM EDT) Cholesterol 165 0 - 200 mg/dL LAB CHEMISTRY METHOD 11/03/2024 1:16 PM EDT [facility] Triglycerides 154(H) 0 - 150 mg/dL LAB CHEMISTRY METHOD 11/03/2024 1:16 PM EDT [facility] HDL 37(L) >=40 mg/dL LAB CHEMISTRY METHOD 11/03/2024 1:16 PM EDT [facility] LDL Calculated 97 0 - 100 mg/dL LAB CHEMISTRY METHOD 11/03/2024 1:16 PM EDT [facility] VLDL Cholesterol Phu 30.8 mg/dL LAB CHEMISTRY METHOD 11/03/2024 1:16 PM EDT [facility] Non HDL Chol. (LDL+VLDL) 128 <145 mg/dL LAB CHEMISTRY METHOD 11/03/2024 1:16 PM EDT [facility] Chol/HDL Ratio 4.5(H) 0.0 - 4.4 LAB CHEMISTRY METHOD 11/03/2024 1:16 PM EDT [facility] Blood Venous blood specimen / Unknown Venipuncture / Unknown 11/03/2024 9:41 AM EDT 11/03/2024 9:41 AM EDT us Belia Kessler MD LAB BLOOD ORDERABLES Final Resul t [facility] [address] [place] [address], * (ABNORMAL) CBC auto differential (11/03/2024 9:41 AM EDT) WBC 10.1 4.8 - 10.8 K/mcL LAB HEMETOLOGY METHOD 11/03/2024 12:21 PM EDT [facility] RBC 4.90(H) 3.80 - 4.80 M/mcL LAB HEMETOLOGY METHOD 11/03/2024 12:[address] [facility] Hemoglobin 12.3 11.5 - 16.0 g/dL LAB HEMETOLOGY METHOD 11/03/2024 12:[address] [facility] Hematocrit 41.5 35.0 - 47.0 % LAB HEMETOLOGY METHOD 11/03/2024 12:[address] [facility] MCV 84.7 79.0 - 98.0 FL LAB HEMETOLOGY METHOD 11/03/2024 12:[address] [facility] MCH 25.1(L) 27.0 - 32.0 pcg LAB HEMETOLOGY METHOD 11/03/2024 12:[address] [facility] MCHC 29.6(L) 32.0 - 37.0 g/dL LAB HEMETOLOGY METHOD 11/03/2024 12:[address] [facility] RDW 14.3 11.0 - 15.0 % LAB HEMETOLOGY METHOD 11/03/2024 12:[address] [facility] Platelets 392 130 - 400 K/mcL LAB HEMETOLOGY METHOD 11/03/2024 12:[address] [facility] MPV 10.7 7.0 - 11.0 FL LAB HEMETOLOGY METHOD 11/03/2024 12:[address] [facility] NRBC 0.0 <1.0 % LAB HEMETOLOGY METHOD 11/03/2024 12:[address] [facility] NRBC Absolute 0.00 <0.10 K/mcL LAB HEMETOLOGY METHOD 11/03/2024 12:[address] [facility] Neutrophils Relative 61.4 % LAB HEMETOLOGY METHOD 11/03/2024 12:[address] [facility] Lymphocytes Relative 31.1 % LAB HEMETOLOGY METHOD 11/03/2024 12:[address] [facility] Monocytes Relative 5.3 % LAB HEMETOLOGY METHOD 11/03/2024 12:[address] [facility] Eosinophils Relative 1.3 % LAB HEMETOLOGY METHOD 11/03/2024 12:[address] [facility] Basophils Relative 0.5 % LAB HEMETOLOGY METHOD 11/03/2024 12:[address] [facility] Immature Granulocytes Relative 0.4 % LAB HEMETOLOGY METHOD 11/03/2024 12:[address] [facility] Neutrophils Absolute 6.23 1.50 - 7.00 K/mcL LAB HEMETOLOGY METHOD 11/03/2024 12:[address] [facility] Lymphocytes Absolute 3.15 1.00 - 5.00 K/mcL LAB HEMETOLOGY METHOD 11/03/2024 12:[address] [facility] Monocytes Absolute 0.54 0.20 - 1.00 K/mcL LAB HEMETOLOGY METHOD 11/03/2024 12:[address] [facility] Eosinophils Absolute 0.13 0.00 - 0.50 K/mcL LAB HEMETOLOGY METHOD 11/03/2024 12:[address] [facility] Basophils Absolute 0.05 0.00 - 0.20 K/mcL LAB HEMETOLOGY METHOD 11/03/2024 12:[address] [facility] Immature Granulocytes Absolute 0.04(H) 0.00 - 0.03 K/mcL LAB HEMETOLOGY METHOD 11/03/2024 12:[address] [facility] Blood Venous blood specimen / Unknown Venipuncture / Unknown 11/03/2024 9:41 AM EDT 11/03/2024 9:41 AM EDT us Belia Kessler MD LAB BLOOD ORDERABLES Final Resul t [facility] [address] [place] [address], [place] [phone] * Iron and TIBC (11/03/2024 9:41 AM EDT) Iron 64 40 - 150 mcg/dL LAB CHEMISTRY METHOD 11/03/2024 1:16 PM EDT [facility] TIBC 301 250 - 450 mcg/dL LAB CHEMISTRY METHOD 11/03/2024 1:16 PM EDT [facility] Iron Saturation 21 15 - 50 % LAB CHEMISTRY METHOD 11/03/2024 1:16 PM EDT [facility] Blood Venous blood specimen / Unknown Venipuncture / Unknown 11/03/2024 9:41 AM EDT 11/03/2024 9:41 AM EDT us Belia Kessler MD LAB BLOOD ORDERABLES Final Resul t [facility] [address] [place] [address], [place] [phone] * (ABNORMAL) Vitamin D 25 hydroxy (11/03/2024 9:41 AM EDT) [facility] Vit D, 25-Hydroxy 19.0(L) 30.0 - 80.0 ng/mL LAB CHEMISTRY METHOD 11/03/2024 2:30 PM EDT [facility] Blood Venous blood specimen / Unknown Venipuncture / Unknown 11/03/2024 9:41 AM EDT 11/03/2024 9:41 AM EDT us Belia Kessler MD LAB BLOOD ORDERABLES Final Resul t [facility] [address] [place] [address], [place] [phone] * (ABNORMAL) Hemoglobin A1c (11/03/2024 9:41 AM EDT) Pathologist [facility] Hemoglobin A1C 6.8(H) <6.5 % LAB CHEMISTRY METHOD 11/03/2024 6:45 PM EDT [facility] Mean Bld Glu Estim. 148 mg/dL LAB CHEMISTRY METHOD 11/03/2024 6:45 PM EDT [facility] Blood Venous blood specimen / Unknown Venipuncture / Unknown 11/03/2024 9:41 AM EDT 11/03/2024 9:41 AM EDT us Belia Kessler MD LAB BLOOD ORDERABLES Final Resul t Performing Organization Address City/[facility]/ZIP Co de Phone Number [facility] [address] [place] [address], [place] [phone] * Ferritin (11/03/2024 9:41 AM EDT) [facility] Ferritin 36 8 - 252 ng/mL LAB CHEMISTRY METHOD 11/03/2024 1:16 PM EDT [facility] Blood Venous blood specimen / Unknown Venipuncture / Unknown 11/03/2024 9:41 AM EDT 11/03/2024 9:41 AM EDT us Belia Kessler MD LAB BLOOD ORDERABLES Final Resul t Performing Organization Address City/[facility]/ZIP Co de Phone Number [facility] [address] [place] [address], [place] [phone] * (ABNORMAL) Comprehensive metabolic panel (11/03/2024 9:41 AM EDT) [facility] Sodium 136 133 - 145 mmol/L LAB CHEMISTRY METHOD 11/03/2024 1:16 PM EDT [facility] Potassium 4.2 3.5 - 5.5 mmol/L LAB CHEMISTRY METHOD 11/03/2024 1:16 PM EDT [facility] Chloride 105 96 - 110 mmol/L LAB CHEMISTRY METHOD 11/03/2024 1:[address] [facility] CO2 27 21 - 32 mmol/L LAB CHEMISTRY METHOD 11/03/2024 1:[address] [facility] Anion Gap 4 3 - 11 LAB CHEMISTRY METHOD 11/03/2024 1:[address] [facility] Glucose 131(H) 70 - 100 mg/dL LAB CHEMISTRY METHOD 11/03/2024 1:[address] [facility] BUN 8 5 - 25 mg/dL LAB CHEMISTRY METHOD 11/03/2024 1:[address] [facility] Creatinine 0.70 0.50 - 1.10 mg/dL LAB CHEMISTRY METHOD 11/03/2024 1:[address] [facility] eGFR 109 >=60 mL/min/1. 73m2 LAB CHEMISTRY METHOD 11/03/2024 1:[address] [facility] Comment:Calculation based on the Chronic Kidney Disease Epidemiology Collaboration (CKD-EPI) equation refit without adjustment for race. BUN/Creatinine Ratio 11.4 LAB CHEMISTRY METHOD 11/03/2024 1:[address] [facility] Calcium 9.1 8.5 - 10.5 mg/dL LAB CHEMISTRY METHOD 11/03/2024 1:[address] [facility] AST (SGOT) 11 10 - 42 unit/L LAB CHEMISTRY METHOD 11/03/2024 1:[address] [facility] ALT (SGPT) 31 10 - 60 unit/L LAB CHEMISTRY METHOD 11/03/2024 1:[address] [facility] Alkaline Phosphatase 82 42 - 121 unit/L LAB CHEMISTRY METHOD 11/03/2024 1:[address] [facility] Total Protein 6.9 6.0 - 8.0 g/dL LAB CHEMISTRY METHOD 11/03/2024 1:[address] [facility] Albumin 3.7 3.2 - 5.0 g/dL LAB CHEMISTRY METHOD 11/03/2024 1:16 PM EDT [facility] Total Bilirubin 0.8 0.0 - 1.4 mg/dL LAB CHEMISTRY METHOD 11/03/2024 1:16 PM EDT [facility] Blood Venous blood specimen / Unknown Venipuncture / Unknown 11/03/2024 9:41 AM EDT 11/03/2024 9:41 AM EDT Belia Kessler MD LAB BLOOD ORDERABLES Final Resul t [facility] [address] [place] [address], [place] [phone] * (ABNORMAL) POC Urine Auto W/O Micro (08/29/2024 10:15 AM EDT) Glucose UA POC 100(A) Negative, Trace mg/dL Bilirubin UA POC Negative Negative, Small Ketones UA POC Negative Negative, Trace Specific [place] UA POC >=1.030 Blood UA POC Negative Negative, Large PH UA POC 6.0 Protein UA POC Negative Negative, >=300 mg/dL Urobilinogen UA POC 0.2 E.U./dL mg/dL Nitrite UA POC Negative Negative Leukocytes UA POC Negative Negative Urine Urine specimen obtained by clean catch procedure / Unknown 08/29/2024 10:15 AM EDT Ama Jaimes MD POINT OF CARE TEST ENTER/EDIT OR DERABLES Final Result * SCREENING MAMMOGRAPHY BI 2-VIEW BREAST INC CAD (06/25/2023 6:50 PM EST) Anatomical Region Laterality Modality Radiographic Yue ging 02/19/2022 5:05 PM EDT Narrative 06/26/2023 7:35 AM EST This is a summary report. The complete report is available in the patient's medical record. If you cannot access the medical record, please contact the sending organization for a detailed fax or copy. Full field digital screening tomosynthesis mammography, reviewed with CAD and compared to previous mammograms dating back to 02/09/2019 with most recent of 02/19/2022. The breasts are composed of fatty and fibroglandular tissue. No suspicious mass, architectural distortion or suspicious calcifications are identified. IMPRESSION: : No mammographic evidence of malignancy. BIRADS 1-Negative; N. 5 year breast cancer risk assessment 0.4 % Lifetime breast cancer risk assessment 5.5 % Breast cancer risk category Low (<15%) Procedure Note Kailey Vinson MD - 01/18/2024 This is a summary report. The complete report is available in thepatient's medical record. If you cannot access the medical record, pleasecontact the sending organization for a detailed fax or copy. Full field digital screening tomosynthesis mammography, reviewed with CADand compared to previous mammograms dating back to 02/09/2019 with mostrecent of 02/19/2022. The breasts are composed of fatty and fibroglandulartissue. No suspicious mass, architectural distortion or suspiciouscalcifications are identified. IMPRESSION: : No mammographic evidence of malignancy. BIRADS 1-Negative; N. 5 year breast cancer risk assessment 0.4 % Lifetime breast cancer risk assessment 5.5 % Breast cancer risk category Low (<15%) Result [facility] Anne Eckert CNM IMG XR PROCEDURES Final Resul t * Cervical Cancer Screening: HPV (10/08/2018) [facility] Cervical Cancer Screening: HPV Negative, Abstracted Result [facility] Provider HEALTH MAINTENANCE Final Result * HIV Screening (10/06/2018) [facility] HIV Screening Abstracted Result [facility] Provider HEALTH MAINTENANCE Final Result * Hepatitis C Screening (10/06/2018) [facility] Hepatitis C Screening Abstracted Result [facility] Provider HEALTH MAINTENANCE Final Result from Last 3 Months or Most Recently Relevant to Health Maintenance Insurance [place] [id number] Care Teams Annealer Relationship Specialty Start Date End Date Belia Kessler MD [address] [place] [id number] PCP - General 07/08/22
== END 2024-11-22 12:32 | disposition home or self-care (01) ==
PROVIDERS: PCP Internal Medicine; Visit Provider Nurse Practitioner
DX: K21.9 Gastro-esophageal reflux disease without esophagitis (principal); K59.04 Chronic idiopathic constipation; K80.20 Calculus of gallbladder without cholecystitis without obstruction; K62.89 Other specified diseases of anus and rectum; K64.9 Unspecified hemorrhoids
CPT/HCPCS: 99213

== ENCOUNTER → 2024-11-22 11:26 | Outpatient (BNVA) | payer OTHER, SELFPAY | PROVIDERS: PCP Internal Medicine; Visit Provider Nurse Practitioner | DX: K21.9 Gastro-esophageal reflux disease without esophagitis (principal); K59.04 Chronic idiopathic constipation; K80.20 Calculus of gallbladder without cholecystitis without obstruction; K62.89 Other specified diseases of anus and rectum; K64.9 Unspecified hemorrhoids | CPT/HCPCS: 99212 ==